=== PATIENT | male | born 1950 | race Caucasian/White ===

== ENCOUNTER 2024-02-05 10:51 | Emergency (ER) | payer OTHER ==
--- NOTE | 2024-02-05 11:07 | ERPHSYRPT ---
- History of Present Illness Time Seen by Provider: 02/05/24 11:05 Source: patient, EMS Exam Limitations: no limitations Physician History: The patient, with an unspecified medical history, presented after an episode of syncope at a local store. This was the first such episode, characterized by sudden onset dizziness followed by loss of consciousness. There was no prior history of dizziness or pre-syncopal symptoms. The patient denied any rotational vertigo. The syncopal episode resulted in a fall, during which the patient hit the back of their head. There was minor bleeding and a hematoma formed at the site of injury. No other injuries were reported from the fall. Post-incident, the patient reported feeling 'okay' with no ongoing dizziness. There were no visual disturbances or other neurological symptoms. The patient denied any chest pain or history of atrial fibrillation. There was no history of myocardial infarction or stenting. Regarding their general health, the patient mentioned a recommendation from their primary care physician to increase water and potassium intake, suggesting possible issues with hydration or electrolyte balance. However, there was no history of kidney disease or dialysis. The patient denied any current headache. Timing/Duration: today Severity: moderate Character of Deficits: none Deficits: no difficulties Baseline/Normal Cognition: alert oriented x 3 Current Cognition: alert oriented x 3 Associated Symptoms: other (syncope), No confusion, No nausea, No vomiting, No weakness, No slurred speech, No vision changes, No chest pain Allergies/Adverse Reactions: No Known Drug Allergies Allergy (Verified 02/05/24 10:53) Home Medications: Aspirin EC 81 mg [Ecotrin 81 mg] 81 mg PO HS 02/05/24 [History] Clonidine HCl 0.1 mg [Clonidine 0.1 mg Tablet] 0.1 mg PO CLARIFY 02/05/24 [History] Metformin HCl 500 mg [Glucophage 500 MG] 500 mg PO CLARIFY 02/05/24 [History] Metoprolol Tartrate 25 mg [Lopressor 25MG Tab] 25 mg PO CLARIFY 02/05/24 [History] - Review of Systems All Other Systems: Reviewed and Negative - Nursing Vital Signs Nursing Vital Signs: Initial Vital Signs Temperature 98 F 02/05/24 10:56 Pulse Rate 75 02/05/24 10:56 Respiratory Rate 24 02/05/24 10:56 Blood Pressure 103/67 02/05/24 10:56 O2 Sat by Pulse Oximetry 97 02/05/24 10:56 Pain Scale Pain Intensity 0 - [place] Coma Scale Best Eye Response ([place]): (4) open spontaneously Best Verbal Response ([place]): (5) oriented Best Motor Response ([place]): (6) obeys commands [place] Total: 15 - Physical Exam General Appearance: no apparent distress Eye Exam: bilateral eye: normal inspection, PERRL, EOMI Ears, Nose, Throat Exam: normal ENT inspection, pharynx normal, moist mucous membranes Neck Exam: normal inspection, non-tender, supple, full range of motion Respiratory: normal breath sounds, lungs clear, airway intact, No respiratory distress Cardiovascular: regular rate/rhythm, capillary refill <2 sec, No edema Gastrointestinal: soft, No tenderness, No distention Extremity Exam: normal inspection Mental Status: alert, 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 x 3, 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 Exam: normal hearing, normal speech, PERRL, tongue midline Coordination/Gait: normal finger to nose, normal cerebellar function Motor/Sensory: no motor deficit, no sensory deficit, no pronator drift Skin Exam: normal color, warm, dry, abrasion (occipital region, no active bleeding.) SpO2 Interpretation: normal O2 Delivery: Room Air - Course Nursing assessment & vital signs reviewed: Yes EKG Interpreted by Me: RATE (75), Sinus Rhythm, NORMAL AXIS, Right Bundle Branch Block, Other (NC [id number]) - CT Exams Head CT Interpretation: Negative, Tele-radiologist Report Ordered Tests: Active Orders 24 hr Category Date Time Status HEAD WITHOUT CONTRAST [CT] Stat Exams 02/05/24 11:22 Completed CBC W DIFF Stat Lab 02/05/24 11:15 Completed CMP Stat Lab 02/05/24 11:15 Completed CULTURE,URINE Stat Lab 02/05/24 13:54 Received ETHYL ALCOHOL Stat Lab 02/05/24 11:15 Completed LIPID PROFILE Stat Lab 02/05/24 11:15 Completed MAGNESIUM Stat Lab 02/05/24 11:15 Completed TROPONIN Q4H Lab 02/05/24 11:15 Completed TROPONIN Q4H Lab 02/05/24 15:30 Ordered TROPONIN Q4H Lab 02/05/24 19:30 Ordered TSH, 3RD Generation Stat Lab 02/05/24 11:15 Completed UA W/RFX UR CULTURE Stat Lab 02/05/24 13:54 Completed Urine Triage Profile Stat Lab 02/05/24 13:54 Results Bardy 3-7 Day Holter ONCE RT 02/05/24 13:40 Completed Medication Summary Generic Name Dose Route Start Last Admin Trade Name Bethany PRN Reason Stop Dose Admin Ceftriaxone Sodium 2 gm in 100 mls @ 200 mls/hr 02/05/24 14:30 02/05/24 14:39 Rocephin 2 Gm/100 Ml Nacl IV 02/05/24 14:59 200 mls/hr STAT ONE 200 mls/hr Administration Discontinued Medications Generic Name Dose Route Start Last Admin Trade Name Bethany PRN Reason Stop Dose Admin Sodium Chloride 1,000 mls @ 999 mls/hr 02/05/24 12:06 02/05/24 13:17 Sodium Chloride 0.9% 1000 Ml IV 02/05/24 13:06 Infused .Q1H1M STA Infusion Sodium Chloride Confirm 02/05/24 12:11 Sodium Chloride 0.9% 1000 Ml Administered 02/05/24 12:12 Dose 1,000 mls @ ud .ROUTE .STK-MED ONE Ceftriaxone Sodium Confirm 02/05/24 14:34 Rocephin 1 Gm / 100 Ml Nacl Administered 02/05/24 14:35 Dose 1 gm in 100 mls @ ud IV .STK-MED ONE Ceftriaxone Sodium Confirm 02/05/24 14:37 Rocephin 2 Gm/100 Ml Nacl Administered 02/05/24 14:38 Dose 2 gm in 100 mls @ ud IV .STK-MED ONE Lab/Rad Data: Laboratory Result Diagrams 02/05/24 11:15 02/05/24 11:15 Laboratory Results 02/05/24 02/05/24 02/05/24 Range/Units 13:54 13:54 11:15 WBC (4.23-9.07) x10^3/uL RBC (4.63-6.08) x10^6/uL Hgb (13.7-17.5) g/dL Hct (40.1-51.0) % MCV (79.0-92.2) fL MCH (25.7-32.2) pg MCHC (32.3-36.5) g/dL RDW (11.6-14.4) % Plt Count (163-337) x10^3/uL MPV (9.4-12.4) fL Gran % (34.0-67.9) % Immature Gran % (Auto) (0.001-0.429) % Nucleat RBC Rel Count (0.00-0.2) % Eos # (Auto) (0.04-0.54) x10^3/uL Immature Gran # (Auto) (0.001-0.031) x10^3u/L Absolute Lymphs (auto) (1.32-3.57) x10^3/uL Absolute Monos (auto) (0.30-0.82) x10^3/uL Absolute Nucleated RBC (0.00-0.012) x10^3u/L Lymphocytes % (21.8-53.1) % Monocytes % (5.3-12.2) % Eosinophils % (0.8-7.0) % Basophils % (0.2-1.2) % Absolute Granulocytes (1.78-5.38) x10^3/uL Basophils # (0.01-0.08) x10^3/uL Sodium (135-145) mmol/L Potassium (3.5-5.1) mmol/L Chloride (98-107) mmol/L Carbon Dioxide (22-30) mmol/L Anion Gap (5-15) MEQ/L BUN (9-20) mg/dL Creatinine (0.66-1.25) mg/dL Estimated GFR ML/MIN Glucose (74-106) mg/dL Hemoglobin A1c 6.03 H (4.5-6.0) % Calcium (8.4-10.2) mg/dL Magnesium (1.6-2.3) mg/dL Total Bilirubin (0.2-1.3) mg/dL AST (17-59) U/L ALT (0-50) U/L Alkaline Phosphatase (38-126) U/L Troponin I (0.000-0.033) ng/mL Serum Total Protein (6.3-8.2) g/dL Albumin (3.5-5.0) g/dL Triglycerides (30-150) mg/dL Cholesterol (50-200) mg/dL LDL Cholesterol (30-100) mg/dL HDL Cholesterol (40-60) mg/dL Heart Disease Risk Ratio TSH 3rd Generation (0.470-4.680) mIU/L Urine Color Yellow (Yellow) Urine Appearance Cloudy A (Clear) Urine pH 6.5 (4.6-8.0) Ur Specific [place] <=1.005 (1.005-1.030) Urine Protein Trace A (Negative) Urine Glucose (UA) Negative (Negative) mg/dL Urine Ketones Negative (Negative) Urine Blood Large A (Negative) Urine Nitrite Positive A (Negative) Urine Bilirubin Negative (Negative) Urine Urobilinogen 0.2 (0.2) mg/dL Ur Leukocyte Esterase Large A (Negative) U Hyaline Cast (Auto) 3-5 A (0-2) /LPF Urine Microscopic RBC 3-5 (0-5) /HPF Urine Microscopic WBC >100 A (0-5) /HPF Ur Epithelial Cells None Seen (None Seen) /HPF Urine Bacteria Many A (None Seen) /HPF Urine Culture Reflexed YES (NO) Urine Opiates Level NEGATIVE (NEGATIVE) Ur Methadone NEGATIVE (NEGATIVE) Urine Barbiturates NEGATIVE (NEGATIVE) Ur Phencyclidine (PCP) NEGATIVE (NEGATIVE) Urine Amphetamine NEGATIVE (NEGATIVE) U Benzodiazepine Level Pending Urine Cocaine NEGATIVE (NEGATIVE) Urine Marijuana (THC) NEGATIVE (NEGATIVE) Ethyl Alcohol (0-10) mg/dL 02/05/24 02/05/24 02/05/24 Range/Units 11:15 11:15 11:15 WBC (4.23-9.07) x10^3/uL RBC (4.63-6.08) x10^6/uL Hgb (13.7-17.5) g/dL Hct (40.1-51.0) % MCV (79.0-92.2) fL MCH (25.7-32.2) pg MCHC (32.3-36.5) g/dL RDW (11.6-14.4) % Plt Count (163-337) x10^3/uL MPV (9.4-12.4) fL Gran % (34.0-67.9) % Immature Gran % (Auto) (0.001-0.429) % Nucleat RBC Rel Count (0.00-0.2) % Eos # (Auto) (0.04-0.54) x10^3/uL Immature Gran # (Auto) (0.001-0.031) x10^3u/L Absolute Lymphs (auto) (1.32-3.57) x10^3/uL Absolute Monos (auto) (0.30-0.82) x10^3/uL Absolute Nucleated RBC (0.00-0.012) x10^3u/L Lymphocytes % (21.8-53.1) % Monocytes % (5.3-12.2) % Eosinophils % (0.8-7.0) % Basophils % (0.2-1.2) % Absolute Granulocytes (1.78-5.38) x10^3/uL Basophils # (0.01-0.08) x10^3/uL Sodium 130 L (135-145) mmol/L Potassium 4.2 (3.5-5.1) mmol/L Chloride 93 L (98-107) mmol/L Carbon Dioxide 26 (22-30) mmol/L Anion Gap 14.9 (5-15) MEQ/L BUN 56 H (9-20) mg/dL Creatinine 1.89 H (0.66-1.25) mg/dL Estimated GFR 36.8 ML/MIN Glucose 115 H (74-106) mg/dL Hemoglobin A1c (4.5-6.0) % Calcium 9.7 (8.4-10.2) mg/dL Magnesium 1.9 (1.6-2.3) mg/dL Total Bilirubin 0.80 (0.2-1.3) mg/dL AST 34 (17-59) U/L ALT 18 (0-50) U/L Alkaline Phosphatase 82 (38-126) U/L Troponin I < 0.012 (0.000-0.033) ng/mL Serum Total Protein 8.1 (6.3-8.2) g/dL Albumin 4.6 (3.5-5.0) g/dL Triglycerides 132 (30-150) mg/dL Cholesterol 82 (50-200) mg/dL LDL Cholesterol < 46 (30-100) mg/dL HDL Cholesterol 29 L (40-60) mg/dL Heart Disease Risk Ratio 3.0 TSH 3rd Generation 2.431 (0.470-4.680) mIU/L Urine Color (Yellow) Urine Appearance (Clear) Urine pH (4.6-8.0) Ur Specific [place] (1.005-1.030) Urine Protein (Negative) Urine Glucose (UA) (Negative) mg/dL Urine Ketones (Negative) Urine Blood (Negative) Urine Nitrite (Negative) Urine Bilirubin (Negative) Urine Urobilinogen (0.2) mg/dL Ur Leukocyte Esterase (Negative) U Hyaline Cast (Auto) (0-2) /LPF Urine Microscopic RBC (0-5) /HPF Urine Microscopic WBC (0-5) /HPF Ur Epithelial Cells (None Seen) /HPF Urine Bacteria (None Seen) /HPF Urine Culture Reflexed (NO) Urine Opiates Level (NEGATIVE) Ur Methadone (NEGATIVE) Urine Barbiturates (NEGATIVE) Ur Phencyclidine (PCP) (NEGATIVE) Urine Amphetamine (NEGATIVE) U Benzodiazepine Level Urine Cocaine (NEGATIVE) Urine Marijuana (THC) (NEGATIVE) Ethyl Alcohol < 10 (0-10) mg/dL 02/05/24 Range/Units 11:15 WBC 10.8 H (4.23-9.07) x10^3/uL RBC 4.93 (4.63-6.08) x10^6/uL Hgb 15.0 (13.7-17.5) g/dL Hct 44.2 (40.1-51.0) % MCV 89.7 (79.0-92.2) fL MCH 30.4 (25.7-32.2) pg MCHC 33.9 (32.3-36.5) g/dL RDW 11.7 (11.6-14.4) % Plt Count 251 (163-337) x10^3/uL MPV 9.0 L (9.4-12.4) fL Gran % 72.1 H (34.0-67.9) % Immature Gran % (Auto) 0.6 H (0.001-0.429) % Nucleat RBC Rel Count 0.0 (0.00-0.2) % Eos # (Auto) 0.16 (0.04-0.54) x10^3/uL Immature Gran # (Auto) 0.06 H (0.001-0.031) x10^3u/L Absolute Lymphs (auto) 2.03 (1.32-3.57) x10^3/uL Absolute Monos (auto) 0.65 (0.30-0.82) x10^3/uL Absolute Nucleated RBC 0.00 (0.00-0.012) x10^3u/L Lymphocytes % 18.8 L (21.8-53.1) % Monocytes % 6.0 (5.3-12.2) % Eosinophils % 1.5 (0.8-7.0) % Basophils % 1.0 (0.2-1.2) % Absolute Granulocytes 7.77 H (1.78-5.38) x10^3/uL Basophils # 0.11 H (0.01-0.08) x10^3/uL Sodium (135-145) mmol/L Potassium (3.5-5.1) mmol/L Chloride (98-107) mmol/L Carbon Dioxide (22-30) mmol/L Anion Gap (5-15) MEQ/L BUN (9-20) mg/dL Creatinine (0.66-1.25) mg/dL Estimated GFR ML/MIN Glucose (74-106) mg/dL Hemoglobin A1c (4.5-6.0) % Calcium (8.4-10.2) mg/dL Magnesium (1.6-2.3) mg/dL Total Bilirubin (0.2-1.3) mg/dL AST (17-59) U/L ALT (0-50) U/L Alkaline Phosphatase (38-126) U/L Troponin I (0.000-0.033) ng/mL Serum Total Protein (6.3-8.2) g/dL Albumin (3.5-5.0) g/dL Triglycerides (30-150) mg/dL Cholesterol (50-200) mg/dL LDL Cholesterol (30-100) mg/dL HDL Cholesterol (40-60) mg/dL Heart Disease Risk Ratio TSH 3rd Generation (0.470-4.680) mIU/L Urine Color (Yellow) Urine Appearance (Clear) Urine pH (4.6-8.0) Ur Specific [place] (1.005-1.030) Urine Protein (Negative) Urine Glucose (UA) (Negative) mg/dL Urine Ketones (Negative) Urine Blood (Negative) Urine Nitrite (Negative) Urine Bilirubin (Negative) Urine Urobilinogen (0.2) mg/dL Ur Leukocyte Esterase (Negative) U Hyaline Cast (Auto) (0-2) /LPF Urine Microscopic RBC (0-5) /HPF Urine Microscopic WBC (0-5) /HPF Ur Epithelial Cells (None Seen) /HPF Urine Bacteria (None Seen) /HPF Urine Culture Reflexed (NO) Urine Opiates Level (NEGATIVE) Ur Methadone (NEGATIVE) Urine Barbiturates (NEGATIVE) Ur Phencyclidine (PCP) (NEGATIVE) Urine Amphetamine (NEGATIVE) U Benzodiazepine Level Urine Cocaine (NEGATIVE) Urine Marijuana (THC) (NEGATIVE) Ethyl Alcohol (0-10) mg/dL - Progress Progress: improved Progress Note: CT head neg for acute bleed. Unable to perform contrast study due to Cr of 1.8 and GFR and 34. I do believe his syncopal episode was cardiac nature. Will dc home with holter monitor for 7 days. Recommend f/u outpatient for further eval with echo, carotid US and tilt table. Counseled pt/family regarding: lab results, diagnosis, need for follow-up, rad results Medical Desision Making - Diagnostic Testing Diagnostic test were ordered, analyzed, and reviewed by me: Yes Radiological Interpretation: Interpreted by me, Reviewed by me, Teleradiologist Report - Departure Departure Disposition: Home Clinical Impression: TARYN (acute kidney injury), Syncope and collapse, Abrasion of head, Dehydration, UTI (urinary tract infection) Condition: Good Critical Care Time: No Referrals: DOCTOR,NO FAMILY [Primary Care Provider] - Follow up/PCP as directed Instructions: Dizziness, Nonvertigo, (DC), Urinary Tract Infection, Adult ED Prescriptions: Cephalexin Mh 500 mg [Keflex 500 mg] 500 mg PO TID 5 Days #15 cap
[2024-02-05 11:14] VITALS: TEMP 98
[2024-02-05 11:28] LABS: Absolute Neutrophil Ct (ANC) 7.77 x10^3/uL (1.78-5.38); Basophil (Absolute #) 0.11 x10^3/uL (0.01-0.08); Eosinophil % 1.5 % (0.8-7.0); Eosinophil (Absolute #) 0.16 x10^3/uL (0.04-0.54); Hematocrit 44.2 % (40.1-51.0); IMMATURE GRAN # 0.06 x10^3u/L (0.001-0.031); IMMATURE GRAN % 0.6 % (0.001-0.429); Lymphocyte (Absolute #) 2.03 x10^3/uL (1.32-3.57); Lymphocytes % 18.8 % (21.8-53.1); Mean Cell Volume 89.7 fL (79.0-92.2); Mean Corpuscular Hemoglobin 30.4 pg (25.7-32.2); Mean Corpuscular Hgb Concent. 33.9 g/dL (32.3-36.5); Monocyte (Absolute #) 0.65 x10^3/uL (0.30-0.82); Neutrophil % 72.1 % (34.0-67.9); Platelet Count 251 x10^3/uL (163-337); Red Blood Count 4.93 x10^6/uL (4.63-6.08); Red Cell Distribution Width 11.7 % (11.6-14.4); White Blood Count 10.8 x10^3/uL (4.23-9.07)
[2024-02-05 11:39] LABS: ALBUMIN 4.6 g/dL (3.5-5.0); ALKALINE PHOSPHATASE 82 U/L (38-126); ANION GAP 14.9 MEQ/L (5-15); BLOOD UREA NITROGEN 56 mg/dL (9-20); CHLORIDE 93 mmol/L (98-107); Calcium 9.7 mg/dL (8.4-10.2); Carbon Dioxide 26 mmol/L (22-30); Creatinine 1 1.89 mg/dL (0.66-1.25); EST GLOMERULAR FILTRATION RATE 36.8 ML/MIN; ETHYL ALCOHOL < 10 mg/dL (0-10); Glucose 115 mg/dL (74-106); MAGNESIUM 1.9 mg/dL (1.6-2.3); Potassium 4.2 mmol/L (3.5-5.1); SGOT/AST 34 U/L (17-59); SGPT/ALT 18 U/L (0-50); SODIUM 130 mmol/L (135-145); Total Protein 8.1 g/dL (6.3-8.2)
[2024-02-05 12:05] VITALS: RESP 20
--- NOTE | 2024-02-05 12:09 | XRAY ---
CLINICAL HISTORY: fall, dizziness COMPARISON: None. TECHNIQUE: Axial non contrast CT scan of the brain was performed from the skull base to the high parietal region. One of the following dose reduction techniques was utilized for this exam.Automated exposure control, adjustment of the mA and/or kV according to patient size, and use of iterative reconstruction. FINDINGS: No intracerebral or extra axial hematoma. No established territorial ischemic infarction was seen. Age-appropriate brain involutional changes are seen as evident by prominent intra- and extra axial CSF spaces. Multiple scattered hypodensities are seen in the bilateral periventricular region representing chronic microvascular ischemic changes. No obvious space-occupying lesions seen. The visualized brain parenchyma shows normal appearance. No focal parenchymal abnormalities are demonstrated. Mariee-white matter differentiation is maintained. No midline shifts or deformity. Normal size and configuration of the cerebral ventricles. Normal CT appearance of the posterior fossa structures namely the cerebellar hemispheres, brainstem and cerebellar peduncles. The IACs are unremarkable. The cerebello-pontine angles are clear. The pituitary gland, the pineal gland, the optic chiasm is unremarkable. The osseous structures in the skull base are unremarkable. No definite calvarium fractures. Mucosal thickening is seen in right maxillary sinus. Mild mucosal thickening also seen in left maxillary sinus. IMPRESSION: 1. No intracerebral or extra axial hematoma. 2. No established territorial ischemic infarction was seen. Early changes of acute ischemic infarction may not be detected on CT scan, MRI DWI/ADC is the imaging modality of choice. 3. Age-appropriate brain involutional changes and chronic microvascular ischemic changes. Electronically Signed by: Viviana Sheth MD. (02/05/2024 12:06:00 EDT)
[2024-02-05] MEDS: Sodium Chloride 0.9% 1000 ML 1,000 ML IV STA (12:11)
[2024-02-05] MEDS ORDERED: Sodium Chloride 0.9% 1000 ML 1,000 ML ONE (12:11)
[2024-02-05 12:13] LABS: Cholesterol 82 mg/dL (50-200); HDL CHOLESTEROL 29 mg/dL (40-60); LDL, DIRECT < 46 mg/dL (30-100); TRIGLYCERIDE 132 mg/dL (30-150); TSH, 3RD Generation 2.431 mIU/L (0.470-4.680)
[2024-02-05 14:12] VITALS: BP 85/68; PULSE 70; O2SAT 96
[2024-02-05 14:23] LABS: Appearance Cloudy (Clear); Bacteria Many /HPF (None Seen); Bilirubin Negative (Negative); Blood Large (Negative); Epithelial Cells None Seen /HPF (None Seen); Glucose, Urine Negative (Negative); Ketones Negative (Negative); Leukocyte Esterase Large (Negative); Nitrite Positive (Negative); Ph 6.5 (4.6-8.0); Protein,Urine Dip Trace (Negative); Specific Gravity <=1.005 (1.005-1.030); Urobilinogen 0.2 mg/dL (0.2); WBC >100 /HPF (0-5)
[2024-02-05 14:24] LABS: ADD URINE CULTURE? YES (NO)
[2024-02-05 14:31] LABS: Amphetamine,Urine NEGATIVE (NEGATIVE); Barbiturate,Urine NEGATIVE (NEGATIVE); Cocaine,Urine NEGATIVE (NEGATIVE); Methadone,Urine NEGATIVE (NEGATIVE); Opiate,Urine NEGATIVE (NEGATIVE); PCP,Urine NEGATIVE (NEGATIVE); THC,Urine NEGATIVE (NEGATIVE)
[2024-02-05] MEDS ORDERED: ROCEPHIN 1 GM / 100 ML NaCl 1 GM/100 ML IVPB IV ONE (14:34)
[2024-02-05] MEDS ORDERED: ROCEPHIN 2 GM/100 ML NACL 2 GM/100 ML IVPB IV ONE (14:37)
[2024-02-05] MEDS: ROCEPHIN 2 GM/100 ML NACL 2 GM/100 ML IVPB IV ONE (14:39)
[2024-02-07 20:13] LABS: Benzodiazepines Negative ng/mL (Cutoff=300)
== END 2024-02-05 15:24 | disposition home or self-care (01) ==
LOC: ED 10:51
DX: N17.9 Acute kidney failure, unspecified (principal); R55 Syncope and collapse; S00.01XA Abrasion of scalp, initial encounter; W18.39XA Other fall on same level, initial encounter; Y92.512 Supermarket, store or market as the place of occurrence of the external cause; E86.0 Dehydration; N39.0 Urinary tract infection, site not specified; Z79.84 Long term (current) use of oral hypoglycemic drugs; Z79.899 Other long term (current) drug therapy
CPT/HCPCS: 36415; 70450; 80053; 80061; 80307; 81001; 82077; 83036; 83721; 83735; 84443; 84484; 85025; 87086; 93005; 93225; 96365; 99284; J0696

== ENCOUNTER 2024-03-18 10:22 | Inpatient (IN) | payer OTHER ==
--- NOTE | 2024-03-18 10:48 | ERPHSYRPT ---
- History of Present Illness Time Seen by Provider: 03/18/24 10:48 Source: patient Exam Limitations: no limitations Patient Subjective Stated Complaint: pt states that he has had painful urination since Tuesday Triage Nursing Assessment: Pt brought self to the ER, hypotensive, denies pain unless he is urinating, pulses normal, skin pale and warm, had a UTI last month but doesn't think that he had fully gotten rid of it, doesn't appear to be in a ny distress Physician History: The patient presents with a urinary infection, experiencing a burning sensation during urination. They have been on antibiotics, including Keflex and Macrobid, [facility]. Despite the appearance of the urine, a culture from January did not grow any specific bacteria. The patient denies any fever, confusion, or pain other than the burning sensation during urination. Timing/Duration: week(s) (1) Activites at Onset: rest Quality: burning Onset Location: urethral Pain Radiation: none Severity of Pain-Max: moderate Severity of Pain-Current: moderate Modifying Factors: Improves With: nothing. Worsens With: urinating Associated Symptoms: dysuria, No abdominal pain, No fever, No chills, No diaphoresis, No nausea, No vomiting, No polyuria, No urinary frequency, No loss of bladder control Prior abdominal problems: none Sexual intercourse history: not active Allergies/Adverse Reactions: No Known Drug Allergies Allergy (Verified 03/18/24 10:48) Home Medications: Aspirin EC 81 mg [Ecotrin 81 mg] 81 mg PO HS 02/05/24 [History] Clonidine HCl 0.1 mg [Clonidine 0.1 mg Tablet] 0.1 mg PO CLARIFY 02/05/24 [History] Metformin HCl 500 mg [Glucophage 500 MG] 500 mg PO BID 02/05/24 [History] Metoprolol Tartrate 25 mg [Lopressor 25MG Tab] 25 mg PO CLARIFY 02/05/24 [History] Hx Tetanus, Diphtheria Vaccination/Date Given: Yes Hx Influenza Vaccination/Date Given: No Hx Pneumococcal Vaccination/Date Given: No Travel Risk - International Travel Have you traveled outside of the country in past 3 weeks: No - Emerging Infectious Disease Are you exhibiting symptoms associated with any current EIDs: No - Past Medical History Pertinent Past Medical History: Yes Cardiac History: Hypertension Endocrine Medical History: Diabetes Type II - Past Surgical History Past Surgical History: Yes Other Surgical History: something removed from left ear - Social History Smoking Status: Former smoker How long have you smoked: 60 years Exposure to second hand smoke: No Drug Use: none - Social Determinants of Health Will the patient participate in the screening: Declined to provide - Review of Systems All Other Systems: Reviewed and Negative - Nursing Vital Signs Nursing Vital Signs: Initial Vital Signs Temperature 98.9 F 03/18/24 10:40 Pulse Rate 85 03/18/24 10:40 Blood Pressure 85/49 03/18/24 10:40 O2 Sat by Pulse Oximetry 97 03/18/24 10:40 Pain Scale Pain Intensity 0 - Physical Exam General Appearance: no apparent distress Neck Exam: normal inspection, supple, full range of motion Respiratory Exam: airway intact, No respiratory distress Cardiovascular Exam: regular rate/rhythm, normal heart sounds, capillary refill <2 sec, No edema Gastrointestinal/Abdomen Exam: soft, No tenderness, No distention, No mass, No guarding, No rebound Neurologic Exam: alert, oriented x 3, cooperative Skin Exam: normal color, warm, dry SpO2 Interpretation: normal SpO2: 97 O2 Delivery: Room Air - Course Nursing assessment & vital signs reviewed: Yes Ordered Tests: Active Orders 24 hr Category Date Time Status 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 Care 03/18/24 11:08 Active Gutierrez [Catheter-[place] Gutierrez] STAT Care 03/18/24 12:43 Active IV Insertion STAT Care 03/18/24 11:08 Active Pulse Oximetry (ED) STAT Care 03/18/24 11:08 Active ABDOMEN AND PELVIS W/0 CONTRAS [CT] Stat Exams 03/18/24 11:50 Completed BLOOD CULTURE Stat Lab 03/18/24 11:34 Received CBC W DIFF Stat Lab 03/18/24 11:08 Completed CMP Stat Lab 03/18/24 11:08 Completed CULTURE,URINE Stat Lab 03/18/24 11:12 Received Lactic Acid Stat Lab 03/18/24 11:20 Completed PROCALCITONIN Stat Lab 03/18/24 11:21 Completed UA W/RFX UR CULTURE Stat Lab 03/18/24 11:12 Completed VENOUS BLOOD GAS Stat Lab 03/18/24 11:20 Completed Transfer Order Routine Transfer 03/18/24 Ordered Medication Summary Generic Name Dose Route Start Last Admin Trade Name Freq PRN Reason Stop Dose Admin Sodium Chloride 1,000 mls @ 999 mls/hr 03/18/24 11:15 03/18/24 13:31 Sodium Chloride 0.9% 1000 Ml IV 03/18/24 14:15 999 mls/hr .Q1H1M CARLEY Administration Discontinued Medications Generic Name Dose Route Start Last Admin Trade Name Bethany PRN Reason Stop Dose Admin Levofloxacin/Dextrose 750 mg in 150 mls @ 100 mls/hr 03/18/24 11:09 03/18/24 13:21 Levofloxacin 750mg/150ml D5w IV 03/18/24 12:38 Infused STAT STA Infusion Levofloxacin/Dextrose Confirm 03/18/24 11:40 Levofloxacin 750mg/150ml D5w Administered 03/18/24 11:41 Dose 750 mg in 150 mls @ ud IV .[facility] Lab/Rad Data: Laboratory Result Diagrams 03/18/24 11:08 03/18/24 11:08 Laboratory Results 03/18/24 03/18/24 03/18/24 Range/Units 11:21 11:20 11:20 WBC (4.23-9.07) x10^3/uL RBC (4.63-6.08) x10^6/uL Hgb (13.7-17.5) g/dL Hct (40.1-51.0) % MCV (79.0-92.2) fL MCH (25.7-32.2) pg MCHC (32.3-36.5) g/dL RDW (11.6-14.4) % Plt Count (163-337) x10^3/uL MPV (9.4-12.4) fL Gran % (34.0-67.9) % Immature Gran % (Auto) (0.001-0.429) % Nucleat RBC Rel Count (0.00-0.2) % Eos # (Auto) (0.04-0.54) x10^3/uL Immature Gran # (Auto) (0.001-0.031) x10^3u/L Absolute Lymphs (auto) (1.32-3.57) x10^3/uL Absolute Monos (auto) (0.30-0.82) x10^3/uL Absolute Nucleated RBC (0.00-0.012) x10^3u/L Lymphocytes % (21.8-53.1) % Monocytes % (5.3-12.2) % Eosinophils % (0.8-7.0) % Basophils % (0.2-1.2) % Absolute Granulocytes (1.78-5.38) x10^3/uL Basophils # (0.01-0.08) x10^3/uL pO2/FiO2 Ratio 21.0 % VBG pH 7.43 H (7.32-7.42) VBG pCO2 at Pat Temp 32 L (42-55) mm/Hg VBG pO2 at Pat Temp 42 H (25-40) mm/Hg VBG HCO3 21.2 L (22-28) meq/L VBG O2 Sat (Vivek) 80.5 L (95-100) VBG Base Excess -2.4 L (-2.0-2.0) VBG Hemoglobin 12.2 VBG Carboxyhemoglobin 3.6 (0.0-6.9) % T HGB POC Potassium 4.3 (3.5-5.1) Sodium (135-145) mmol/L Potassium (3.5-5.1) mmol/L Chloride (98-107) mmol/L Carbon Dioxide (22-30) mmol/L Anion Gap (5-15) MEQ/L BUN (9-20) mg/dL Creatinine (0.66-1.25) mg/dL Estimated GFR ML/MIN Glucose (74-106) mg/dL Lactic Acid 1.5 (0.4-2.0) Calcium (8.4-10.2) mg/dL Total Bilirubin (0.2-1.3) mg/dL AST (17-59) U/L ALT (0-50) U/L Alkaline Phosphatase (38-126) U/L Serum Total Protein (6.3-8.2) g/dL Albumin (3.5-5.0) g/dL Procalcitonin 0.368 H (0.030-0.080) ng/mL Urine Color (Yellow) Urine Appearance (Clear) Urine pH (4.6-8.0) Ur Specific [place] (1.005-1.030) Urine Protein (Negative) Urine Glucose (UA) (Negative) mg/dL Urine Ketones (Negative) Urine Blood (Negative) Urine Nitrite (Negative) Urine Bilirubin (Negative) Urine Urobilinogen (0.2) mg/dL Ur Leukocyte Esterase (Negative) U Hyaline Cast (Auto) (0-2) /LPF Urine Microscopic RBC (0-5) /HPF Urine Microscopic WBC (0-5) /HPF Ur Epithelial Cells (None Seen) /HPF Urine Bacteria (None Seen) /HPF Urine Culture Reflexed (NO) Slides for Path Review 03/18/24 03/18/24 03/18/24 Range/Units 11:12 11:08 11:08 WBC 18.3 H (4.23-9.07) x10^3/uL RBC 3.94 L (4.63-6.08) x10^6/uL Hgb 11.7 L (13.7-17.5) g/dL Hct 34.0 L (40.1-51.0) % MCV 86.3 (79.0-92.2) fL MCH 29.7 (25.7-32.2) pg MCHC 34.4 (32.3-36.5) g/dL RDW 12.5 (11.6-14.4) % Plt Count 280 (163-337) x10^3/uL MPV 9.1 L (9.4-12.4) fL Gran % 80.7 H (34.0-67.9) % Immature Gran % (Auto) 0.7 H (0.001-0.429) % Nucleat RBC Rel Count 0.0 (0.00-0.2) % Eos # (Auto) 0.06 (0.04-0.54) x10^3/uL Immature Gran # (Auto) 0.13 H (0.001-0.031) x10^3u/L Absolute Lymphs (auto) 1.55 (1.32-3.57) x10^3/uL Absolute Monos (auto) 1.73 H (0.30-0.82) x10^3/uL Absolute Nucleated RBC 0.00 (0.00-0.012) x10^3u/L Lymphocytes % 8.5 L (21.8-53.1) % Monocytes % 9.4 (5.3-12.2) % Eosinophils % 0.3 L (0.8-7.0) % Basophils % 0.4 (0.2-1.2) % Absolute Granulocytes 14.76 H (1.78-5.38) x10^3/uL Basophils # 0.08 (0.01-0.08) x10^3/uL pO2/FiO2 Ratio % VBG pH (7.32-7.42) VBG pCO2 at Pat Temp (42-55) mm/Hg VBG pO2 at Pat Temp (25-40) mm/Hg VBG HCO3 (22-28) meq/L VBG O2 Sat (Vivek) (95-100) VBG Base Excess (-2.0-2.0) VBG Hemoglobin VBG Carboxyhemoglobin (0.0-6.9) % T HGB POC Potassium (3.5-5.1) Sodium 123 L (135-145) mmol/L Potassium 4.3 (3.5-5.1) mmol/L Chloride 92 L (98-107) mmol/L Carbon Dioxide 21 L (22-30) mmol/L Anion Gap 15.0 (5-15) MEQ/L BUN 62 H (9-20) mg/dL Creatinine 3.06 H (0.66-1.25) mg/dL Estimated GFR 20.6 ML/MIN Glucose 122 H (74-106) mg/dL Lactic Acid (0.4-2.0) Calcium 9.0 (8.4-10.2) mg/dL Total Bilirubin 1.20 (0.2-1.3) mg/dL AST 30 (17-59) U/L ALT 26 (0-50) U/L Alkaline Phosphatase 67 (38-126) U/L Serum Total Protein 7.3 (6.3-8.2) g/dL Albumin 4.0 (3.5-5.0) g/dL Procalcitonin (0.030-0.080) ng/mL Urine Color Yellow (Yellow) Urine Appearance Cloudy A (Clear) Urine pH 8.0 (4.6-8.0) Ur Specific [place] 1.010 (1.005-1.030) Urine Protein 100 A (Negative) Urine Glucose (UA) Negative (Negative) mg/dL Urine Ketones Negative (Negative) Urine Blood Moderate A (Negative) Urine Nitrite Negative (Negative) Urine Bilirubin Negative (Negative) Urine Urobilinogen 0.2 (0.2) mg/dL Ur Leukocyte Esterase Large A (Negative) U Hyaline Cast (Auto) 6-10 A (0-2) /LPF Urine Microscopic RBC 6-10 A (0-5) /HPF Urine Microscopic WBC >100 A (0-5) /HPF Ur Epithelial Cells None Seen (None Seen) /HPF Urine Bacteria Many A (None Seen) /HPF Urine Culture Reflexed YES (NO) Slides for Path Review YES - Progress Progress Note: 03/18/24 11:24 Urinary Tract Infection Reports dysuria. Has been on Keflex and Macrobid without improvement. Previous urine culture in January was negative despite abnormal appearance. No systemic symptoms. -Collect urine for culture and sensitivity. -Empiric tx with Levofloxacin. -Sepsis screen initiated Hypotension Reports lightheadedness, possibly related to antihypertensive medication. Blood pressure measured as low in the office. -Administer IV fluids. -Recheck blood pressure after fluid administration. -Review antihypertensive medication regimen. -If no improvement consider pressors. 03/18/24 13:52 BP improved with fluid resuscitation. MAP 73 currently. Sepsis secondary to UTI. Continue Levofloxacin. Patient agreeable to admission, Dr. Sousa accepts at 1350. Discussed with Dr.: Other (Merry) Will see patient in: hospital (observation) Counseled pt/family regarding: lab results, diagnosis, need for follow-up, rad results Medical Desision Making - Diagnostic Testing Diagnostic test were ordered, analyzed, and reviewed by me: Yes Radiological Interpretation: Interpreted by me, Reviewed by me, Teleradiologist Report - Risk of complications The pt has a mod risk of morbidity or mortality based on: Need for prescription drug management The pt has a high risk of morbidity or mortality based on: Decision regarding hospitilization or escalation of hosp level of care - Departure Departure Disposition: Observation Clinical Impression: TARYN (acute kidney injury), BPH (benign prostatic hyperplasia), UTI (urinary tract infection), Sepsis, Urinary retention due to benign prostatic hyperplasia Condition: Stable Critical Care Time: No Referrals: [facility]OSP[facility],'S [Primary Care Provider] - Follow up/PCP as directed Instructions: Urinary Tract Infection, Adult (DC)
[2024-03-18 11:24] LABS: Absolute Neutrophil Ct (ANC) 14.76 x10^3/uL (1.78-5.38); BASOPHIL % 0.4 % (0.2-1.2); Basophil (Absolute #) 0.08 x10^3/uL (0.01-0.08); Eosinophil % 0.3 % (0.8-7.0); Eosinophil (Absolute #) 0.06 x10^3/uL (0.04-0.54); Hemoglobin 11.7 g/dL (13.7-17.5); IMMATURE GRAN # 0.13 x10^3u/L (0.001-0.031); IMMATURE GRAN % 0.7 % (0.001-0.429); Lymphocyte (Absolute #) 1.55 x10^3/uL (1.32-3.57); Lymphocytes % 8.5 % (21.8-53.1); Mean Cell Volume 86.3 fL (79.0-92.2); Mean Corpuscular Hemoglobin 29.7 pg (25.7-32.2); Mean Corpuscular Hgb Concent. 34.4 g/dL (32.3-36.5); Mean Platelet Volume 9.1 fL (9.4-12.4); Monocyte (Absolute #) 1.73 x10^3/uL (0.30-0.82); Monocytes % 9.4 % (5.3-12.2); Neutrophil % 80.7 % (34.0-67.9); Platelet Count 280 x10^3/uL (163-337); Red Blood Count 3.94 x10^6/uL (4.63-6.08); Red Cell Distribution Width 12.5 % (11.6-14.4); White Blood Count 18.3 x10^3/uL (4.23-9.07)
[2024-03-18 11:25] LABS: VBG BASE EXCESS -2.4 (-2.0-2.0); VBG CARBOXYHEMOGLOBIN 3.6 % T HGB (0.0-6.9); VBG HCO3- 21.2 meq/L (22-28); VBG HEMOGLOBIN 12.2; VBG O2 SATURATION 80.5 (95-100); VBG POTASSIUM 4.3 (3.5-5.1); VBG pH 7.43 (7.32-7.42)
[2024-03-18 11:38] LABS: BILIRUBIN,TOTAL 1.2 mg/dL (0.2-1.3); Creatinine 1 3.06 mg/dL (0.66-1.25); EST GLOMERULAR FILTRATION RATE 20.6 ML/MIN; Potassium 4.3 mmol/L (3.5-5.1); Total Protein 7.3 g/dL (6.3-8.2)
[2024-03-18] MEDS ORDERED: LEVOFLOXACIN 750MG/150ML D5W 750 MG/150 ML BAG IV ONE (11:40)
[2024-03-18] MEDS ORDERED: Sodium Chloride 0.9% 1000 ML 1,000 ML ONE ×2 (11:40→13:22)
[2024-03-18] MEDS: LEVOFLOXACIN 750MG/150ML D5W 750 MG/150 ML BAG IV STA (11:42)
[2024-03-18] MEDS: Sodium Chloride 0.9% 1000 ML 1,000 ML IV SCH ×2 (11:43→16:15)
[2024-03-18 11:51] LABS: Appearance Cloudy (Clear); Bacteria Many /HPF (None Seen); Bilirubin Negative (Negative); Blood Moderate (Negative); Epithelial Cells None Seen /HPF (None Seen); Glucose, Urine Negative (Negative); Ketones Negative (Negative); Leukocyte Esterase Large (Negative); Nitrite Negative (Negative); Protein,Urine Dip 100 (Negative); Urobilinogen 0.2 mg/dL (0.2); WBC >100 /HPF (0-5)
[2024-03-18 11:53] LABS: ADD URINE CULTURE? YES (NO)
[2024-03-18 12:00] LABS: Slide Review 1 YES
--- NOTE | 2024-03-18 13:07 | XRAY ---
CLINICAL HISTORY: abd pain COMPARISON: None. TECHNIQUE: Non-contrast CT of the abdomen was performed, with the following protocol: axial images and reconstructed coronal and sagittal images, without intravenous contrast. One of the following dose reduction techniques was utilized for this exam.Automated exposure control, adjustment of the mA and/or kV according to patient size, and use of iterative reconstruction. DLP: 728mGy*cm, and CTDI 13.95mGy. FINDINGS: Liver: Normal in size, shape, and density. At least 3 small hypodense lesions seen in the right lobe of liver, largest measuring about 7X 12 mm suggesting benign lesions likely hemangiomas versus hepatic cysts. No intrahepatic biliary dilatation. Gallbladder and Biliary System: The gallbladder is contracted. No pericholecystic fluid was identified. Small hyperdense focus within the gall bladder suggesting gallstone, needs Ultrasound correlation. Common bile duct measures 6 mm without dilatation. Pancreas: Pancreatic head, body, and tail are visualized and appear normal in size and density. No pancreatic masses, cysts, or calcifications were noted. The main pancreatic duct is normal without dilatation. Spleen: Normal in size, shape, and density. No splenic lesions or masses were identified. Kidneys and Adrenal Glands: Bilateral hydro-ureter and hydronephrosis with bilateral perinephric fat stranding noted. Both ureters are showing tortuous course with no clear stone or thickening. Urinary bladder thickened wall with multiple diverticula noted the largest one seen in the posterior wall measuring 5x4 cm in diameter. Right side kidney midpole shows a 9x9 mm high-density focal lesion. DD proteinous cyst. No clear stones are identifiable. Mild thickening of left adrnal gland suggesting adrenal hyperplasia. Appendix: The appendix is normal in size without sean appendiceal fat stranding, and without an appendicolith. No evidence of appendiceal abscess or perforation. Bowel: Few colonic diverticuli mainly involving descending and ascending colon without evident diverticulitis. 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 Prostate is enlarged 5x4x4.5 cm. Peritoneal and Retroperitoneal Structures: Multiple vascular calcifications are noted including the aorta and its branches. No free fluid or abnormal fluid collections were identified within the abdomen or pelvis. No lymphadenopathy was noted. Additional findings: Bilateral small fat-containing inguinal hernia IMPRESSION: 1. At least 3 small hypodense lesions are seen in the right lobe of liver, largest measuring about 7X 12 mm suggesting benign lesions likely hemangiomas versus hepatic cysts. 2. The gallbladder is normal in size and shape. No wall thickening, pericholecystic fluid,were identified. Small density focus within the gall bladder DD Fold or stone needs Ultrasound correlation. 3. Bilateral mild to moderate hydroureteronephrosis with bilateral perinephric fat stranding noted. 4. Both ureters are showing tortuous course with no clear stone or thickening. 5. Urinary bladder showed thickened wall with multiple diverticula, the largest one seen in the posterior aspect measuring 5x4 cm in diameter. 6. Right side kidney midpole shows a 9x9 mm high-density focal lesion. DD proteinous cyst. 7. Multiple vascular calcifications noted including the aorta and its branches. 8. 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 9. Mild enlarged Prostate. 10. Full workup with urologist and CT/MRI abdomen with contrast advised Electronically Signed by: Viviana Sheth MD. (03/18/2024 13:04:16 EDT)
[2024-03-18] MEDS ORDERED: XYLOCAINE 2% Uro-Jet ONE (13:57)
[2024-03-18] MEDS: XYLOCAINE 2% Uro-Jet TOP ONE (14:03)
--- NOTE | 2024-03-18 14:15 | PCM.HP ---
<ALEX WINTER - Last Filed: 03/18/24 15:42> History of Present Illness - Chief Complaint Chief Complaint: Painful urination Date: 03/18/24 History of Present Illness: is a 73 year old male with a pmhx of BPH (on flomax), HLD, marcel-tachy syndrome (pacemaker placement scheduled in 2 weeks), DM and HTN who presented to ED 03/18/24 with complaints of painful urination for three days. Of note ED visit 02/05/24 for which he was treated for UTI with Keflex. Reviewed previous culture showing probable skin contaminant. Patient reports dysuria, frequency, and retention since about January with symptoms worsening over the past few days. Denies hematuria at home, no flank or back pain, nausea, vomiting, or diarrhea. Patient is febrile during interview with temp of 101.3. States he does not recall having fever or chills previously. Muse placed in ED due to urinary retention with noted pyuria, hematuria, and large blood clots in muse bag. Upon arrival to ED, patient was tachypneic and hypotensive with bp 85/49 but later dropping in the 70's/40's. BP improved with fluid resusitation. CT abdomen and pelvis showing 3 small hypodense lesions are seen in the right lobe of liver, Small density focus within the gall bladder DD Fold or stone needs Ultrasound correlation, Bilateral mild to moderate hydroureteronephrosis with bilateral perinephricfat stranding noted. Both ureters are showing tortuous course with no clear stone or thickening. Urinary bladder showed thickened wall with multiple diverticula, the largest one seen in the posterior aspect measuring 5x4 cm in diameter. Right side kidney midpole shows a 9x9 mm high-density focal lesion. DD proteinous cyst. Lab findings remarkable for leukocytosis at 18.3, normocytic anemia with hgb at 11.7, hyponatremia at 123, TARYN with creat at 3.06 (baseline unknown - previous visit showing 1.89). UA suspicious for infection. Patient given levaquin in ED and 2L fluid bolus. - Review of Systems Constitutional: Fever, Weakness Eyes: No Symptoms Ears, Nose, & Throat: No Symptoms Respiratory: No Symptoms Cardiac: No Symptoms Abdominal/Gastrointestinal: Constipation Genitourinary Symptoms: Dysuria, Frequency, Hematuria, Hesitancy, Urinary Retention Musculoskeletal: No Symptoms Skin: No Symptoms Neurological: No Symptoms Psychological: No Symptoms Endocrine: No Symptoms Hematologic/Lymphatic: No Symptoms Immunological/Allergic: No Symptoms Medications & Allergies Home Medications: Home Medication List Aspirin EC 81 mg [Ecotrin 81 mg] 81 mg PO HS 02/05/24 [History Confirmed 03/18/24] Clonidine HCl 0.1 mg [Clonidine 0.1 mg Tablet] 0.1 mg PO HS 02/05/24 [History Confirmed 03/18/24] Metformin HCl 500 mg [Glucophage 500 MG] 500 mg PO HS 02/05/24 [History Confirmed 03/18/24] Metoprolol Tartrate 25 mg [Lopressor 25MG Tab] 25 mg PO HS 02/05/24 [History Confirmed 03/18/24] Ezetimibe 10 mg [Zetia 10 MG] 10 mg PO HS 03/18/24 [History Confirmed 03/18/24] Olanzapine 5 mg [zyPREXA 5MG TABLET] 10 mg PO HS 03/18/24 [History Confirmed 03/18/24] Simvastatin 20Mg [Zocor 20Mg] 40 mg PO HS 03/18/24 [History Confirmed 03/18/24] Tamsulosin HCl 0.4 mg [Flomax 0.4 MG] 0.4 mg PO HS 03/18/24 [History Confirmed 03/18/24] Allergies/Adverse Reactions: Allergies Allergy/AdvReac Type Severity Reaction Status Date / Time No Known Drug Allergies Allergy Verified 03/18/24 10:48 - Past Medical History Past Medical History: Yes Cardiac History: Hypertension Endocrine Medical History: Diabetes Type II - Past Surgical History Past Surgical History: Yes Other Surgical History: something removed from left ear - Social History Smoking Status: Former smoker How long have you smoked: 60 years Exposure to second hand smoke: No Alcohol: None Drug Use: none - Social Determinants of Health Will the patient participate in the screening: Declined to provide - Physical Exam Vital Signs: Vital Signs - 24 hr Temp Pulse Resp BP BP Pulse Ox 03/18/24 14:00 97 03/18/24 13:31 81 33 H 103/58 99 03/18/24 13:00 76 24 112/63 67 L 03/18/24 12:36 71 29 H 109/69 99 03/18/24 12:16 101/51 92 L 03/18/24 11:30 81/49 03/18/24 11:12 95 03/18/24 11:07 77/49 96 03/18/24 11:04 76/42 96 03/18/24 11:02 96 03/18/24 10:44 90/53 97 03/18/24 10:40 98.9 F 85 85/49 97 General Appearance: no apparent distress Neurologic Exam: alert, oriented x 3, cooperative Eye Exam: PERRL/EOMI Ears, Nose, Throat Exam: normal ENT inspection Neck Exam: normal inspection Respiratory Exam: normal breath sounds, lungs clear Rectal Exam: deferred Back Exam: normal inspection Extremity Exam: normal inspection Skin Exam: normal color Results - Labs Lab/Micro Results: Lab Results-Last 24 Hours 03/18/24 03/18/24 03/18/24 Range/Units 11:08 11:08 11:12 WBC 18.3 H (4.23-9.07) x10^3/uL RBC 3.94 L (4.63-6.08) x10^6/uL Hgb 11.7 L (13.7-17.5) g/dL Hct 34.0 L (40.1-51.0) % MCV 86.3 (79.0-92.2) fL MCH 29.7 (25.7-32.2) pg MCHC 34.4 (32.3-36.5) g/dL RDW 12.5 (11.6-14.4) % Plt Count 280 (163-337) x10^3/uL MPV 9.1 L (9.4-12.4) fL Gran % 80.7 H (34.0-67.9) % Immature Gran % (Auto) 0.7 H (0.001-0.429) % Nucleat RBC Rel Count 0.0 (0.00-0.2) % Eos # (Auto) 0.06 (0.04-0.54) x10^3/uL Immature Gran # (Auto) 0.13 H (0.001-0.031) x10^3u/L Absolute Lymphs (auto) 1.55 (1.32-3.57) x10^3/uL Absolute Monos (auto) 1.73 H (0.30-0.82) x10^3/uL Absolute Nucleated RBC 0.00 (0.00-0.012) x10^3u/L Lymphocytes % 8.5 L (21.8-53.1) % Monocytes % 9.4 (5.3-12.2) % Eosinophils % 0.3 L (0.8-7.0) % Basophils % 0.4 (0.2-1.2) % Absolute Granulocytes 14.76 H (1.78-5.38) x10^3/uL Basophils # 0.08 (0.01-0.08) x10^3/uL pO2/FiO2 Ratio % VBG pH (7.32-7.42) VBG pCO2 at Pat Temp (42-55) mm/Hg VBG pO2 at Pat Temp (25-40) mm/Hg VBG HCO3 (22-28) meq/L VBG O2 Sat (Vivek) (95-100) VBG Base Excess (-2.0-2.0) VBG Hemoglobin VBG Carboxyhemoglobin (0.0-6.9) % T HGB POC Potassium (3.5-5.1) Sodium 123 L (135-145) mmol/L Potassium 4.3 (3.5-5.1) mmol/L Chloride 92 L (98-107) mmol/L Carbon Dioxide 21 L (22-30) mmol/L Anion Gap 15.0 (5-15) MEQ/L BUN 62 H (9-20) mg/dL Creatinine 3.06 H (0.66-1.25) mg/dL Estimated GFR 20.6 ML/MIN Glucose 122 H (74-106) mg/dL Lactic Acid (0.4-2.0) Calcium 9.0 (8.4-10.2) mg/dL Total Bilirubin 1.20 (0.2-1.3) mg/dL AST 30 (17-59) U/L ALT 26 (0-50) U/L Alkaline Phosphatase 67 (38-126) U/L Serum Total Protein 7.3 (6.3-8.2) g/dL Albumin 4.0 (3.5-5.0) g/dL Procalcitonin (0.030-0.080) ng/mL Urine Color Yellow (Yellow) Urine Appearance Cloudy A (Clear) Urine pH 8.0 (4.6-8.0) Ur Specific [place] 1.010 (1.005-1.030) Urine Protein 100 A (Negative) Urine Glucose (UA) Negative (Negative) mg/dL Urine Ketones Negative (Negative) Urine Blood Moderate A (Negative) Urine Nitrite Negative (Negative) Urine Bilirubin Negative (Negative) Urine Urobilinogen 0.2 (0.2) mg/dL Ur Leukocyte Esterase Large A (Negative) U Hyaline Cast (Auto) 6-10 A (0-2) /LPF Urine Microscopic RBC 6-10 A (0-5) /HPF Urine Microscopic WBC >100 A (0-5) /HPF Ur Epithelial Cells None Seen (None Seen) /HPF Urine Bacteria Many A (None Seen) /HPF Urine Culture Reflexed YES (NO) Slides for Path Review YES 03/18/24 03/18/24 03/18/24 Range/Units 11:20 11:20 11:21 WBC (4.23-9.07) x10^3/uL RBC (4.63-6.08) x10^6/uL Hgb (13.7-17.5) g/dL Hct (40.1-51.0) % MCV (79.0-92.2) fL MCH (25.7-32.2) pg MCHC (32.3-36.5) g/dL RDW (11.6-14.4) % Plt Count (163-337) x10^3/uL MPV (9.4-12.4) fL Gran % (34.0-67.9) % Immature Gran % (Auto) (0.001-0.429) % Nucleat RBC Rel Count (0.00-0.2) % Eos # (Auto) (0.04-0.54) x10^3/uL Immature Gran # (Auto) (0.001-0.031) x10^3u/L Absolute Lymphs (auto) (1.32-3.57) x10^3/uL Absolute Monos (auto) (0.30-0.82) x10^3/uL Absolute Nucleated RBC (0.00-0.012) x10^3u/L Lymphocytes % (21.8-53.1) % Monocytes % (5.3-12.2) % Eosinophils % (0.8-7.0) % Basophils % (0.2-1.2) % Absolute Granulocytes (1.78-5.38) x10^3/uL Basophils # (0.01-0.08) x10^3/uL pO2/FiO2 Ratio 21.0 % VBG pH 7.43 H (7.32-7.42) VBG pCO2 at Pat Temp 32 L (42-55) mm/Hg VBG pO2 at Pat Temp 42 H (25-40) mm/Hg VBG HCO3 21.2 L (22-28) meq/L VBG O2 Sat (Vivek) 80.5 L (95-100) VBG Base Excess -2.4 L (-2.0-2.0) VBG Hemoglobin 12.2 VBG Carboxyhemoglobin 3.6 (0.0-6.9) % T HGB POC Potassium 4.3 (3.5-5.1) Sodium (135-145) mmol/L Potassium (3.5-5.1) mmol/L Chloride (98-107) mmol/L Carbon Dioxide (22-30) mmol/L Anion Gap (5-15) MEQ/L BUN (9-20) mg/dL Creatinine (0.66-1.25) mg/dL Estimated GFR ML/MIN Glucose (74-106) mg/dL Lactic Acid 1.5 (0.4-2.0) Calcium (8.4-10.2) mg/dL Total Bilirubin (0.2-1.3) mg/dL AST (17-59) U/L ALT (0-50) U/L Alkaline Phosphatase (38-126) U/L Serum Total Protein (6.3-8.2) g/dL Albumin (3.5-5.0) g/dL Procalcitonin 0.368 H (0.030-0.080) ng/mL Urine Color (Yellow) Urine Appearance (Clear) Urine pH (4.6-8.0) Ur Specific [place] (1.005-1.030) Urine Protein (Negative) Urine Glucose (UA) (Negative) mg/dL Urine Ketones (Negative) Urine Blood (Negative) Urine Nitrite (Negative) Urine Bilirubin (Negative) Urine Urobilinogen (0.2) mg/dL Ur Leukocyte Esterase (Negative) U Hyaline Cast (Auto) (0-2) /LPF Urine Microscopic RBC (0-5) /HPF Urine Microscopic WBC (0-5) /HPF Ur Epithelial Cells (None Seen) /HPF Urine Bacteria (None Seen) /HPF Urine Culture Reflexed (NO) Slides for Path Review - Radiology Impressions Radiology Exams & Impressions: Radiology Procedures Category Date Time Status ABDOMEN AND PELVIS W/0 CONTRAS [CT] Stat Exams 03/18/24 11:50 Completed Assessment/Plan (1) Sepsis Current Visit: Yes Status: Acute Assessment & Plan: -CT abdomen and pelvis showing 3 small hypodense lesions are seen in the right lobe of liver, Small density focus within the gall bladder DD Fold or stone needs Ultrasound correlation, Bilateral mild to moderate hydroureteronephrosis with bilateral perinephricfat stranding noted. Both ureters are showing tortuous course with no clear stone or thickening. Urinary bladder showed thickened wall with multiple diverticula, the largest one seen in the posterior aspect measuring 5x4 cm in diameter. Right side kidney midpole shows a 9x9 mm high-density focal lesion. DD proteinous cyst. -UA suggestive of UTI - most likely source of infection -meets criteria with RR, leukocytosis and known source of infection - septic shock with hypotension/TARYN -LA wnl/PCT elevated at 0.368/blood and urine cultures pending -WBC at 18.3 -trend -supplemental oxygen with spo2 goal of > 92% -ABG prn if significant hypoxia/lethargy -Received 2L fluid bolus - continue IVF -Strict I&O - monitor for fluid overload -Target MAP>65 - if patient remains hypotensive consider levophed drip -CXR -Levaquin initiated in ED - continue ceftriaxone - follow cultures (2) UTI (urinary tract infection) Current Visit: Yes Status: Acute Assessment & Plan: -see sepsis -Failed outpatient treatment with Keflex and Macrobid. Previous urine culture in January showing contaminant Code(s): N39.0 - URINARY TRACT INFECTION, SITE NOT SPECIFIED (3) Hypotension Current Visit: Yes Status: Acute Assessment & Plan: -Most likely secondary to sepsis- see plan above -hold anti-hypertensives Code(s): I95.9 - HYPOTENSION, UNSPECIFIED (4) Hyponatremia Current Visit: Yes Status: Acute Assessment & Plan: -Continue IVF -sodium improving Code(s): E87.1 - HYPO-OSMOLALITY AND HYPONATREMIA (5) TARYN (acute kidney injury) Current Visit: Yes Status: Acute Assessment & Plan: -secondary to infection/urinary retention/hypovolemia -Monitor renal/lytes daily -avoid nephrotoxic medications Code(s): N17.9 - ACUTE KIDNEY FAILURE, UNSPECIFIED (6) Diabetes mellitus Current Visit: Yes Status: Acute Assessment & Plan: -Last A1c on file 02/05/24 at 6.03 -ADA diet -SSI Code(s): E11.9 - TYPE 2 DIABETES MELLITUS WITHOUT COMPLICATIONS (7) Marcel-tachy syndrome Current Visit: Yes Status: Acute Assessment & Plan: -Noted on recent holter -monitor testing from 02/05/24 - planned pacemaker placement in 2 weeks Code(s): I49.5 - SICK SINUS SYNDROME (8) Former smoker Current Visit: Yes Status: Acute Assessment & Plan: -Quit 1.5 months ago Code(s): Z87.891 - PERSONAL HISTORY OF NICOTINE DEPENDENCE (9) HLD (hyperlipidemia) Current Visit: Yes Status: Acute Assessment & Plan: -continue statin Code(s): E78.5 - HYPERLIPIDEMIA, UNSPECIFIED (10) Urinary retention due to benign prostatic hyperplasia Current Visit: Yes Status: Acute Assessment & Plan: -as noted on CT scan -FC -Flomax -continue -Urology follow up as OP -Monitor urine output closely - q2H - large clots may clog muse VTE: lovenox/ASA- hold due to hematuria Dispo: 2-3 days PPI:Protonix Code(s): N40.1 - BENIGN PROSTATIC HYPERPLASIA WITH LOWER URINARY TRACT SYMP; R33.8 - OTHER RETENTION OF URINE Telemedicine Encounter - Telemedicine Encounter Telemedicine Encounter: "The entirety of this encounter was performed via Telemedicine" This visit was performed using real-time audio and video connection [facility] location[facility] the assistance of a surrogateat the [facility] location. Written or verbal consent was obtained from the patient/guardian to perform this [facility]. Any patient questions regarding the telemedicine interaction were answered. <BETH DODSON - Last Filed: 03/18/24 21:30> History of Present Illness - Chief Complaint History of Present Illness: is a 73 year old male. - Physical Exam Vital Signs: Vital Signs - 24 hr Temp Pulse Resp BP BP Pulse Ox 03/18/24 18:59 99.1 F 03/18/24 17:39 100.9 F 03/18/24 16:41 86 18 96 03/18/24 15:15 101.3 F 100 H 22 107/57 96 03/18/24 14:00 97 03/18/24 14:00 86 30 H 118/100 98 03/18/24 13:31 81 33 H 103/58 99 03/18/24 13:00 76 24 112/63 67 L 03/18/24 12:36 71 29 H 109/69 99 03/18/24 12:16 101/51 92 L 03/18/24 11:30 81/49 03/18/24 11:12 95 03/18/24 11:07 77/49 96 03/18/24 11:04 76/42 96 03/18/24 11:02 96 03/18/24 10:44 90/53 97 03/18/24 10:40 98.9 F 85 85/49 97 Results - Labs Lab/Micro Results: Lab Results-Last 24 Hours 03/18/24 03/18/24 03/18/24 Range/Units 11:08 11:08 11:12 WBC 18.3 H (4.23-9.07) x10^3/uL RBC 3.94 L (4.63-6.08) x10^6/uL Hgb 11.7 L (13.7-17.5) g/dL Hct 34.0 L (40.1-51.0) % MCV 86.3 (79.0-92.2) fL MCH 29.7 (25.7-32.2) pg MCHC 34.4 (32.3-36.5) g/dL RDW 12.5 (11.6-14.4) % Plt Count 280 (163-337) x10^3/uL MPV 9.1 L (9.4-12.4) fL Gran % 80.7 H (34.0-67.9) % Immature Gran % (Auto) 0.7 H (0.001-0.429) % Nucleat RBC Rel Count 0.0 (0.00-0.2) % Eos # (Auto) 0.06 (0.04-0.54) x10^3/uL Immature Gran # (Auto) 0.13 H (0.001-0.031) x10^3u/L Absolute Lymphs (auto) 1.55 (1.32-3.57) x10^3/uL Absolute Monos (auto) 1.73 H (0.30-0.82) x10^3/uL Absolute Nucleated RBC 0.00 (0.00-0.012) x10^3u/L Lymphocytes % 8.5 L (21.8-53.1) % Monocytes % 9.4 (5.3-12.2) % Eosinophils % 0.3 L (0.8-7.0) % Basophils % 0.4 (0.2-1.2) % Absolute Granulocytes 14.76 H (1.78-5.38) x10^3/uL Basophils # 0.08 (0.01-0.08) x10^3/uL pO2/FiO2 Ratio % VBG pH (7.32-7.42) VBG pCO2 at Pat Temp (42-55) mm/Hg VBG pO2 at Pat Temp (25-40) mm/Hg VBG HCO3 (22-28) meq/L VBG O2 Sat (Vivek) (95-100) VBG Base Excess (-2.0-2.0) VBG Hemoglobin VBG Carboxyhemoglobin (0.0-6.9) % T HGB POC Potassium (3.5-5.1) Sodium 123 L (135-145) mmol/L Potassium 4.3 (3.5-5.1) mmol/L Chloride 92 L (98-107) mmol/L Carbon Dioxide 21 L (22-30) mmol/L Anion Gap 15.0 (5-15) MEQ/L BUN 62 H (9-20) mg/dL Creatinine 3.06 H (0.66-1.25) mg/dL Estimated GFR 20.6 ML/MIN Glucose 122 H (74-106) mg/dL POC Glucometer (74 to 106) mg/dL Lactic Acid (0.4-2.0) Calcium 9.0 (8.4-10.2) mg/dL Total Bilirubin 1.20 (0.2-1.3) mg/dL AST 30 (17-59) U/L ALT 26 (0-50) U/L Alkaline Phosphatase 67 (38-126) U/L Serum Total Protein 7.3 (6.3-8.2) g/dL Albumin 4.0 (3.5-5.0) g/dL Procalcitonin (0.030-0.080) ng/mL Urine Color Yellow (Yellow) Urine Appearance Cloudy A (Clear) Urine pH 8.0 (4.6-8.0) Ur Specific [place] 1.010 (1.005-1.030) Urine Protein 100 A (Negative) Urine Glucose (UA) Negative (Negative) mg/dL Urine Ketones Negative (Negative) Urine Blood Moderate A (Negative) Urine Nitrite Negative (Negative) Urine Bilirubin Negative (Negative) Urine Urobilinogen 0.2 (0.2) mg/dL Ur Leukocyte Esterase Large A (Negative) U Hyaline Cast (Auto) 6-10 A (0-2) /LPF Urine Microscopic RBC 6-10 A (0-5) /HPF Urine Microscopic WBC >100 A (0-5) /HPF Ur Epithelial Cells None Seen (None Seen) /HPF Urine Bacteria Many A (None Seen) /HPF Urine Culture Reflexed YES (NO) Slides for Path Review YES 03/18/24 03/18/24 03/18/24 Range/Units 11:20 11:20 11:21 WBC (4.23-9.07) x10^3/uL RBC (4.63-6.08) x10^6/uL Hgb (13.7-17.5) g/dL Hct (40.1-51.0) % MCV (79.0-92.2) fL MCH (25.7-32.2) pg MCHC (32.3-36.5) g/dL RDW (11.6-14.4) % Plt Count (163-337) x10^3/uL MPV (9.4-12.4) fL Gran % (34.0-67.9) % Immature Gran % (Auto) (0.001-0.429) % Nucleat RBC Rel Count (0.00-0.2) % Eos # (Auto) (0.04-0.54) x10^3/uL Immature Gran # (Auto) (0.001-0.031) x10^3u/L Absolute Lymphs (auto) (1.32-3.57) x10^3/uL Absolute Monos (auto) (0.30-0.82) x10^3/uL Absolute Nucleated RBC (0.00-0.012) x10^3u/L Lymphocytes % (21.8-53.1) % Monocytes % (5.3-12.2) % Eosinophils % (0.8-7.0) % Basophils % (0.2-1.2) % Absolute Granulocytes (1.78-5.38) x10^3/uL Basophils # (0.01-0.08) x10^3/uL pO2/FiO2 Ratio 21.0 % VBG pH 7.43 H (7.32-7.42) VBG pCO2 at Pat Temp 32 L (42-55) mm/Hg VBG pO2 at Pat Temp 42 H (25-40) mm/Hg VBG HCO3 21.2 L (22-28) meq/L VBG O2 Sat (Vivek) 80.5 L (95-100) VBG Base Excess -2.4 L (-2.0-2.0) VBG Hemoglobin 12.2 VBG Carboxyhemoglobin 3.6 (0.0-6.9) % T HGB POC Potassium 4.3 (3.5-5.1) Sodium (135-145) mmol/L Potassium (3.5-5.1) mmol/L Chloride (98-107) mmol/L Carbon Dioxide (22-30) mmol/L Anion Gap (5-15) MEQ/L BUN (9-20) mg/dL Creatinine (0.66-1.25) mg/dL Estimated GFR ML/MIN Glucose (74-106) mg/dL POC Glucometer (74 to 106) mg/dL Lactic Acid 1.5 (0.4-2.0) Calcium (8.4-10.2) mg/dL Total Bilirubin (0.2-1.3) mg/dL AST (17-59) U/L ALT (0-50) U/L Alkaline Phosphatase (38-126) U/L Serum Total Protein (6.3-8.2) g/dL Albumin (3.5-5.0) g/dL Procalcitonin 0.368 H (0.030-0.080) ng/mL Urine Color (Yellow) Urine Appearance (Clear) Urine pH (4.6-8.0) Ur Specific [place] (1.005-1.030) Urine Protein (Negative) Urine Glucose (UA) (Negative) mg/dL Urine Ketones (Negative) Urine Blood (Negative) Urine Nitrite (Negative) Urine Bilirubin (Negative) Urine Urobilinogen (0.2) mg/dL Ur Leukocyte Esterase (Negative) U Hyaline Cast (Auto) (0-2) /LPF Urine Microscopic RBC (0-5) /HPF Urine Microscopic WBC (0-5) /HPF Ur Epithelial Cells (None Seen) /HPF Urine Bacteria (None Seen) /HPF Urine Culture Reflexed (NO) Slides for Path Review 03/18/24 03/18/24 03/18/24 Range/Units 14:50 16:48 19:25 WBC (4.23-9.07) x10^3/uL RBC (4.63-6.08) x10^6/uL Hgb 11.0 L (13.7-17.5) g/dL Hct 31.3 L (40.1-51.0) % MCV (79.0-92.2) fL MCH (25.7-32.2) pg MCHC (32.3-36.5) g/dL RDW (11.6-14.4) % Plt Count (163-337) x10^3/uL MPV (9.4-12.4) fL Gran % (34.0-67.9) % Immature Gran % (Auto) (0.001-0.429) % Nucleat RBC Rel Count (0.00-0.2) % Eos # (Auto) (0.04-0.54) x10^3/uL Immature Gran # (Auto) (0.001-0.031) x10^3u/L Absolute Lymphs (auto) (1.32-3.57) x10^3/uL Absolute Monos (auto) (0.30-0.82) x10^3/uL Absolute Nucleated RBC (0.00-0.012) x10^3u/L Lymphocytes % (21.8-53.1) % Monocytes % (5.3-12.2) % Eosinophils % (0.8-7.0) % Basophils % (0.2-1.2) % Absolute Granulocytes (1.78-5.38) x10^3/uL Basophils # (0.01-0.08) x10^3/uL pO2/FiO2 Ratio % VBG pH (7.32-7.42) VBG pCO2 at Pat Temp (42-55) mm/Hg VBG pO2 at Pat Temp (25-40) mm/Hg VBG HCO3 (22-28) meq/L VBG O2 Sat (Vivek) (95-100) VBG Base Excess (-2.0-2.0) VBG Hemoglobin VBG Carboxyhemoglobin (0.0-6.9) % T HGB POC Potassium (3.5-5.1) Sodium 128 L (135-145) mmol/L Potassium 3.8 (3.5-5.1) mmol/L Chloride 96 L (98-107) mmol/L Carbon Dioxide 19 L (22-30) mmol/L Anion Gap 16.9 H (5-15) MEQ/L BUN 58 H (9-20) mg/dL Creatinine 2.74 H (0.66-1.25) mg/dL Estimated GFR 23.6 ML/MIN Glucose 108 H (74-106) mg/dL POC Glucometer 118 H (74 to 106) mg/dL Lactic Acid (0.4-2.0) Calcium 8.4 (8.4-10.2) mg/dL Total Bilirubin 1.40 H (0.2-1.3) mg/dL AST 27 (17-59) U/L ALT 24 (0-50) U/L Alkaline Phosphatase 68 (38-126) U/L Serum Total Protein 7.1 (6.3-8.2) g/dL Albumin 3.9 (3.5-5.0) g/dL Procalcitonin (0.030-0.080) ng/mL Urine Color (Yellow) Urine Appearance (Clear) Urine pH (4.6-8.0) Ur Specific [place] (1.005-1.030) Urine Protein (Negative) Urine Glucose (UA) (Negative) mg/dL Urine Ketones (Negative) Urine Blood (Negative) Urine Nitrite (Negative) Urine Bilirubin (Negative) Urine Urobilinogen (0.2) mg/dL Ur Leukocyte Esterase (Negative) U Hyaline Cast (Auto) (0-2) /LPF Urine Microscopic RBC (0-5) /HPF Urine Microscopic WBC (0-5) /HPF Ur Epithelial Cells (None Seen) /HPF Urine Bacteria (None Seen) /HPF Urine Culture Reflexed (NO) Slides for Path Review Accuchecks Date 03/18/24 Time 16:58 - Radiology Impressions Radiology Exams & Impressions: Radiology Procedures Category Date Time Status ABDOMEN AND PELVIS W/0 CONTRAS [CT] Stat Exams 03/18/24 11:50 Completed CHEST 1 VIEW (PORTABLE) Stat Exams 03/18/24 15:49 Completed - Other Procedures and Tests Respiratory Therapy 03/18/24 16:41 Respiratory Therapy Assessment DAILY Telemedicine Encounter - Telemedicine Encounter Telemedicine Encounter: "The entirety of this encounter was performed via Telemedicine" This visit was performed using real-time audio and video connection between my location and thepatients locationwith the assistance of a surrogateat the patients location. Written or verbal consent was obtained from the patient/guardian to perform this visit using[employer] technology. Any patient questions regarding the telemedicine interaction were answered. GABBY Encounter - GABBY Encounter Attestation GABBY Encounter Attestation: "IhavepersonallyseenandexMIGUEL ANGEL Lopez andhavediscussed pertinent aspects of their care with Alex Horn agree with the history, physical exam (any modifications based on my personal exam will be noted below), assessment, and plan as outlined in original note. Please see immediately below for my summary of findings and additional assessment and plan along with any meaningful corrections/explanations to the Subjective/Objective portions of the GABBY note will be noted." My portion of the encounter took place via telemedicine. -Patient presenting with severe sepsis secondary to UTI/pyelonephritis and urinary retention likely due to BPH. Started on IV antibiotics and IVFs along with placement of muse catheter for management of urinary retention. Hyponatremia likely due to urinary obstruction. Will continue to monitor with replacement of IV fluids. Watch for post obstruction diuresis and replace about half of urine output. Excess fluid replacement may exacerbate diuresis.
[2024-03-18] MEDS ORDERED: HUMALOG SQ PRN (14:43)
[2024-03-18] MEDS ORDERED: DUONEB 0.5-3 MG/3 ml Neb IH PRN (14:43)
[2024-03-18 15:17] LABS: ALBUMIN 3.9 g/dL (3.5-5.0); ANION GAP 16.9 MEQ/L (5-15); BILIRUBIN,TOTAL 1.4 mg/dL (0.2-1.3); Calcium 8.4 mg/dL (8.4-10.2); Creatinine 1 2.74 mg/dL (0.66-1.25); EST GLOMERULAR FILTRATION RATE 23.6 ML/MIN; Potassium 3.8 mmol/L (3.5-5.1); Total Protein 7.1 g/dL (6.3-8.2)
[2024-03-18] MEDS: TYLENOL 325 MG PO PRN (16:14)
--- NOTE | 2024-03-18 17:26 | XRAY ---
CLINICAL HISTORY: leukocytosis COMPARISON: No prior studies are available for comparison. TECHNIQUE: An X-ray image of the chest is obtained in AP projection. FINDINGS: Pulmonary Parenchyma: Increased bilateral bronchovascular markings. No suspicious focal lesions. No evidence of pleural effusion or pleural thickening. Heart and Mediastinum: Heart size and shape are normal. No mediastinal widening or masses. No hilar or mediastinal lymphadenopathy. The aortic knuckle demonstrates atherosclerotic calcifications. Bony Thorax: Bony thorax appears intact without fractures or deformities. Soft Tissues: Soft tissues overlying the chest wall are unremarkable. IMPRESSION: Mild prominence of perihilar vascular markings probably due to mild pulmonary vascular congestion. Clinical correlation is suggested Electronically Signed by: Viviana Sheth MD. (03/18/2024 17:21:43 EDT)
[2024-03-18 19:34] LABS: Hematocrit 31.3 % (40.1-51.0)
[2024-03-18] MEDS: Sodium Chloride 0.9% 1000 ML 1,000 ML IV STA (21:03)
[2024-03-18] MEDS: ZOCOR 20MG PO SCH (22:55)
[2024-03-18] MEDS: zyPREXA 5MG TABLET PO SCH (22:55)
[2024-03-18] MEDS: Zetia 10 MG PO SCH (22:55)
[2024-03-19] MEDS: Sodium Chloride 0.9% 1000 ML 1,000 ML IV SCH ×2 (00:35→01:36)
[2024-03-19 04:58] LABS: Absolute Neutrophil Ct (ANC) 15.61 x10^3/uL (1.78-5.38); BASOPHIL % 0.4 % (0.2-1.2); Basophil (Absolute #) 0.07 x10^3/uL (0.01-0.08); Eosinophil % 0.3 % (0.8-7.0); Eosinophil (Absolute #) 0.06 x10^3/uL (0.04-0.54); Hematocrit 32.2 % (40.1-51.0); IMMATURE GRAN # 0.17 x10^3u/L (0.001-0.031); IMMATURE GRAN % 0.9 % (0.001-0.429); Lymphocyte (Absolute #) 1.08 x10^3/uL (1.32-3.57); Lymphocytes % 5.8 % (21.8-53.1); Mean Cell Volume 87.3 fL (79.0-92.2); Mean Corpuscular Hemoglobin 29.8 pg (25.7-32.2); Mean Corpuscular Hgb Concent. 34.2 g/dL (32.3-36.5); Mean Platelet Volume 9.2 fL (9.4-12.4); Monocytes % 8.1 % (5.3-12.2); Neutrophil % 84.5 % (34.0-67.9); Platelet Count 272 x10^3/uL (163-337); Red Blood Count 3.69 x10^6/uL (4.63-6.08); Red Cell Distribution Width 12.9 % (11.6-14.4); White Blood Count 18.5 x10^3/uL (4.23-9.07)
[2024-03-19 05:38] LABS: ALBUMIN 3.3 g/dL (3.5-5.0); ANION GAP 14.1 MEQ/L (5-15); Calcium 8.3 mg/dL (8.4-10.2); Creatinine 1 2.25 mg/dL (0.66-1.25); EST GLOMERULAR FILTRATION RATE 29.9 ML/MIN; Potassium 3.6 mmol/L (3.5-5.1); Total Protein 6.3 g/dL (6.3-8.2)
[2024-03-19] MEDS: ROCEPHIN 2 GM/100 ML NACL 2 GM/100 ML IVPB IV SCH (09:37)
[2024-03-19] MEDS: Flomax 0.4 MG PO SCH (09:37)
[2024-03-19] MEDS ORDERED: ENOXAPARIN SODIUM SQ SCH (10:00)
--- NOTE | 2024-03-19 11:33 | PCM.NOTE ---
Date and Time: 03/19/24 1127 Subjective Assessment: is a 73 year old male with a pmhx of BPH (on flomax), HLD, amara-tachy syndrome (pacemaker placement scheduled in 2 weeks), DM and HTN. He presented to ED 03/18/24 with complaints of painful urination for three days. Of note ED visit 02/05/24 for which he was treated for UTI with Keflex. Reviewed previous culture showing probable skin contaminant. Patient reports dysuria, frequency, and retention since about January with symptoms worsening over the past few days. Denies hematuria at home, no flank or back pain, nausea, vomiting, or diarrhea. Patient is febrile during interview with temp of 101.3. States he does not recall having fever or chills previously. Muse placed in ED due to urinary retention with noted pyuria, hematuria, and large blood clots in muse bag. Upon arrival to ED, patient was tachypneic and hypotensive with bp 85/49 but later dropping in the 70's/40's. BP improved with fluid resusitation. CT abdomen and pelvis showing 3 small hypodense lesions are seen in the right lobe of liver, Small density focus within the gallbladder DD Fold or stone needs Ultrasound correlation, Bilateral mild to moderate hydroureteronephrosis with bilateral perinephricfat stranding noted. Both ureters are showing tortuous course with no clear stone or thickening. Urinary bladder showed thickened wall with multiple diverticula, the largest one seen in the posterior aspect measuring 5x4 cm in diameter. Right side kidney midpole shows a 9x9 mm high-density focal lesion. DD proteinous cyst. Lab findings remarkable for leukocytosis at 18.3, normocytic anemia with hgb at 11.7, hyponatremia at 123, TARYN with creat at 3.06 (baseline unknown - previous visit showing 1.89). UA suspicious for infection. Patient given levaquin in ED and 2L fluid bolus. Today BP improved but has continued gross hematuria with clots. CBI started. Consider transfer if does not improve. Overnight he had a temp of 101.4 and 100.4. BCx2 and UC pending. He reports never seeing a urologist before. Continue IV antibiotics and IVF. He states he overall does not feel well. - Review of Systems Constitutional: Fever, Fatigue, No Chills Eyes: No Symptoms Ears, Nose, & Throat: No Symptoms Respiratory: No Cough, No Short Of Breath Cardiac: No Chest Pain, No Edema, No Syncope Abdominal/Gastrointestinal: No Abdominal Pain, No Nausea, No Vomiting, No Diarrhea Genitourinary Symptoms: Hematuria, No Dysuria Musculoskeletal: No Back Pain, No Neck Pain Skin: No Rash Neurological: No Dizziness, No Focal Weakness, No Sensory Changes Psychological: No Symptoms Endocrine: No Symptoms Hematologic/Lymphatic: No Symptoms Immunological/Allergic: No Symptoms Objective Exam General Appearance: no apparent distress, alert Neurologic Exam: alert, oriented x 3, cooperative, normal mood/affect, nml cerebellar function, sensation nml, No motor deficits Skin Exam: normal color, warm, dry Eye Exam: PERRL, EOMI, eyes nml inspection Ears, Nose, Throat Exam: normal ENT inspection, pharynx normal, moist mucous membranes Neck Exam: normal inspection, non-tender, supple, full range of motion Respiratory Exam: normal breath sounds, lungs clear, No respiratory distress Cardiovascular Exam: regular rate/rhythm, normal heart sounds Gastrointestinal/Abdomen Exam: soft, No tenderness, No mass Extremity Exam: normal inspection, normal range of motion Back Exam: normal inspection, normal range of motion, No CVA tenderness, No vertebral tenderness Male Genitalia Exam: deferred Rectal Exam: deferred Objective Data Vital Signs: Vital Signs - 24 hr Temp Pulse Resp BP BP Pulse Ox 03/19/24 08:36 98.5 F 88 16 90/50 94 L 03/19/24 07:21 86 18 94 L 03/19/24 05:15 100.4 F 03/19/24 04:00 101.4 F 89 20 109/62 94 L 03/19/24 01:40 88 122/60 03/19/24 00:00 98.3 F 74 20 91/55 95 03/18/24 22:56 78 93/51 03/18/24 22:09 74 90/53 03/18/24 20:45 98.9 F 75 18 72/48 95 03/18/24 18:59 99.1 F 03/18/24 17:39 100.9 F 03/18/24 16:41 86 18 96 03/18/24 15:15 101.3 F 100 H 22 107/57 96 03/18/24 14:00 97 03/18/24 14:00 86 30 H 118/100 98 09/22/24 13:31 81 33 H 103/58 99 03/18/24 13:00 76 24 112/63 67 L 03/18/24 12:36 71 29 H 109/69 99 03/18/24 12:16 101/51 92 L 03/18/24 11:30 81/49 Pain Assessment - Last Documented Pain Intensity 0 Intake and Output: Intake & Output 03/16/24 03/17/24 03/18/24 03/19/24 11:59 11:59 11:59 11:59 Intake Total 4097 Output Total 6300 Balance -2203 Weight 83.007 kg 83.1 kg Lab Results: Lab Results-Last 24 Hours 03/18/24 03/18/24 03/18/24 Range/Units 11:08 11:08 11:12 WBC 18.3 H (4.23-9.07) x10^3/uL RBC 3.94 L (4.63-6.08) x10^6/uL Hgb 11.7 L (13.7-17.5) g/dL Hct 34.0 L (40.1-51.0) % MCV 86.3 (79.0-92.2) fL MCH 29.7 (25.7-32.2) pg MCHC 34.4 (32.3-36.5) g/dL RDW 12.5 (11.6-14.4) % Plt Count 280 (163-337) x10^3/uL MPV 9.1 L (9.4-12.4) fL Gran % 80.7 H (34.0-67.9) % Immature Gran % (Auto) 0.7 H (0.001-0.429) % Nucleat RBC Rel Count 0.0 (0.00-0.2) % Eos # (Auto) 0.06 (0.04-0.54) x10^3/uL Immature Gran # (Auto) 0.13 H (0.001-0.031) x10^3u/L Absolute Lymphs (auto) 1.55 (1.32-3.57) x10^3/uL Absolute Monos (auto) 1.73 H (0.30-0.82) x10^3/uL Absolute Nucleated RBC 0.00 (0.00-0.012) x10^3u/L Lymphocytes % 8.5 L (21.8-53.1) % Monocytes % 9.4 (5.3-12.2) % Eosinophils % 0.3 L (0.8-7.0) % Basophils % 0.4 (0.2-1.2) % Absolute Granulocytes 14.76 H (1.78-5.38) x10^3/uL Basophils # 0.08 (0.01-0.08) x10^3/uL Sodium 123 L (135-145) mmol/L Potassium 4.3 (3.5-5.1) mmol/L Chloride 92 L (98-107) mmol/L Carbon Dioxide 21 L (22-30) mmol/L Anion Gap 15.0 (5-15) MEQ/L BUN 62 H (9-20) mg/dL Creatinine 3.06 H (0.66-1.25) mg/dL Estimated GFR 20.6 ML/MIN Glucose 122 H (74-106) mg/dL POC Glucometer (74 to 106) mg/dL Lactic Acid (0.4-2.0) Calcium 9.0 (8.4-10.2) mg/dL Total Bilirubin 1.20 (0.2-1.3) mg/dL AST 30 (17-59) U/L ALT 26 (0-50) U/L Alkaline Phosphatase 67 (38-126) U/L Serum Total Protein 7.3 (6.3-8.2) g/dL Albumin 4.0 (3.5-5.0) g/dL Procalcitonin (0.030-0.080) ng/mL Urine Color Yellow (Yellow) Urine Appearance Cloudy A (Clear) Urine pH 8.0 (4.6-8.0) Ur Specific Mathews 1.010 (1.005-1.030) Urine Protein 100 A (Negative) Urine Glucose (UA) Negative (Negative) mg/dL Urine Ketones Negative (Negative) Urine Blood Moderate A (Negative) Urine Nitrite Negative (Negative) Urine Bilirubin Negative (Negative) Urine Urobilinogen 0.2 (0.2) mg/dL Ur Leukocyte Esterase Large A (Negative) U Hyaline Cast (Auto) 6-10 A (0-2) /LPF Urine Microscopic RBC 6-10 A (0-5) /HPF Urine Microscopic WBC >100 A (0-5) /HPF Ur Epithelial Cells None Seen (None Seen) /HPF Urine Bacteria Many A (None Seen) /HPF Urine Culture Reflexed YES (NO) Slides for Path Review YES 03/18/24 03/18/24 03/18/24 Range/Units 11:20 11:21 14:50 WBC (4.23-9.07) x10^3/uL RBC (4.63-6.08) x10^6/uL Hgb (13.7-17.5) g/dL Hct (40.1-51.0) % MCV (79.0-92.2) fL MCH (25.7-32.2) pg MCHC (32.3-36.5) g/dL RDW (11.6-14.4) % Plt Count (163-337) x10^3/uL MPV (9.4-12.4) fL Gran % (34.0-67.9) % Immature Gran % (Auto) (0.001-0.429) % Nucleat RBC Rel Count (0.00-0.2) % Eos # (Auto) (0.04-0.54) x10^3/uL Immature Gran # (Auto) (0.001-0.031) x10^3u/L Absolute Lymphs (auto) (1.32-3.57) x10^3/uL Absolute Monos (auto) (0.30-0.82) x10^3/uL Absolute Nucleated RBC (0.00-0.012) x10^3u/L Lymphocytes % (21.8-53.1) % Monocytes % (5.3-12.2) % Eosinophils % (0.8-7.0) % Basophils % (0.2-1.2) % Absolute Granulocytes (1.78-5.38) x10^3/uL Basophils # (0.01-0.08) x10^3/uL Sodium 128 L (135-145) mmol/L Potassium 3.8 (3.5-5.1) mmol/L Chloride 96 L (98-107) mmol/L Carbon Dioxide 19 L (22-30) mmol/L Anion Gap 16.9 H (5-15) MEQ/L BUN 58 H (9-20) mg/dL Creatinine 2.74 H (0.66-1.25) mg/dL Estimated GFR 23.6 ML/MIN Glucose 108 H (74-106) mg/dL POC Glucometer (74 to 106) mg/dL Lactic Acid 1.5 (0.4-2.0) Calcium 8.4 (8.4-10.2) mg/dL Total Bilirubin 1.40 H (0.2-1.3) mg/dL AST 27 (17-59) U/L ALT 24 (0-50) U/L Alkaline Phosphatase 68 (38-126) U/L Serum Total Protein 7.1 (6.3-8.2) g/dL Albumin 3.9 (3.5-5.0) g/dL Procalcitonin 0.368 H (0.030-0.080) ng/mL Urine Color (Yellow) Urine Appearance (Clear) Urine pH (4.6-8.0) Ur Specific Mathews (1.005-1.030) Urine Protein (Negative) Urine Glucose (UA) (Negative) mg/dL Urine Ketones (Negative) Urine Blood (Negative) Urine Nitrite (Negative) Urine Bilirubin (Negative) Urine Urobilinogen (0.2) mg/dL Ur Leukocyte Esterase (Negative) U Hyaline Cast (Auto) (0-2) /LPF Urine Microscopic RBC (0-5) /HPF Urine Microscopic WBC (0-5) /HPF Ur Epithelial Cells (None Seen) /HPF Urine Bacteria (None Seen) /HPF Urine Culture Reflexed (NO) Slides for Path Review 03/18/24 03/18/24 03/18/24 Range/Units 16:48 19:25 20:40 WBC (4.23-9.07) x10^3/uL RBC (4.63-6.08) x10^6/uL Hgb 11.0 L (13.7-17.5) g/dL Hct 31.3 L (40.1-51.0) % MCV (79.0-92.2) fL MCH (25.7-32.2) pg MCHC (32.3-36.5) g/dL RDW (11.6-14.4) % Plt Count (163-337) x10^3/uL MPV (9.4-12.4) fL Gran % (34.0-67.9) % Immature Gran % (Auto) (0.001-0.429) % Nucleat RBC Rel Count (0.00-0.2) % Eos # (Auto) (0.04-0.54) x10^3/uL Immature Gran # (Auto) (0.001-0.031) x10^3u/L Absolute Lymphs (auto) (1.32-3.57) x10^3/uL Absolute Monos (auto) (0.30-0.82) x10^3/uL Absolute Nucleated RBC (0.00-0.012) x10^3u/L Lymphocytes % (21.8-53.1) % Monocytes % (5.3-12.2) % Eosinophils % (0.8-7.0) % Basophils % (0.2-1.2) % Absolute Granulocytes (1.78-5.38) x10^3/uL Basophils # (0.01-0.08) x10^3/uL Sodium (135-145) mmol/L Potassium (3.5-5.1) mmol/L Chloride (98-107) mmol/L Carbon Dioxide (22-30) mmol/L Anion Gap (5-15) MEQ/L BUN (9-20) mg/dL Creatinine (0.66-1.25) mg/dL Estimated GFR ML/MIN Glucose (74-106) mg/dL POC Glucometer 118 H 160 H (74 to 106) mg/dL Lactic Acid (0.4-2.0) Calcium (8.4-10.2) mg/dL Total Bilirubin (0.2-1.3) mg/dL AST (17-59) U/L ALT (0-50) U/L Alkaline Phosphatase (38-126) U/L Serum Total Protein (6.3-8.2) g/dL Albumin (3.5-5.0) g/dL Procalcitonin (0.030-0.080) ng/mL Urine Color (Yellow) Urine Appearance (Clear) Urine pH (4.6-8.0) Ur Specific Mathews (1.005-1.030) Urine Protein (Negative) Urine Glucose (UA) (Negative) mg/dL Urine Ketones (Negative) Urine Blood (Negative) Urine Nitrite (Negative) Urine Bilirubin (Negative) Urine Urobilinogen (0.2) mg/dL Ur Leukocyte Esterase (Negative) U Hyaline Cast (Auto) (0-2) /LPF Urine Microscopic RBC (0-5) /HPF Urine Microscopic WBC (0-5) /HPF Ur Epithelial Cells (None Seen) /HPF Urine Bacteria (None Seen) /HPF Urine Culture Reflexed (NO) Slides for Path Review 03/18/24 03/19/24 03/19/24 Range/Units 20:58 04:45 04:45 WBC 18.5 H (4.23-9.07) x10^3/uL RBC 3.69 L (4.63-6.08) x10^6/uL Hgb 11.0 L (13.7-17.5) g/dL Hct 32.2 L (40.1-51.0) % MCV 87.3 (79.0-92.2) fL MCH 29.8 (25.7-32.2) pg MCHC 34.2 (32.3-36.5) g/dL RDW 12.9 (11.6-14.4) % Plt Count 272 (163-337) x10^3/uL MPV 9.2 L (9.4-12.4) fL Gran % 84.5 H (34.0-67.9) % Immature Gran % (Auto) 0.9 H (0.001-0.429) % Nucleat RBC Rel Count 0.0 (0.00-0.2) % Eos # (Auto) 0.06 (0.04-0.54) x10^3/uL Immature Gran # (Auto) 0.17 H (0.001-0.031) x10^3u/L Absolute Lymphs (auto) 1.08 L (1.32-3.57) x10^3/uL Absolute Monos (auto) 1.50 H (0.30-0.82) x10^3/uL Absolute Nucleated RBC 0.00 (0.00-0.012) x10^3u/L Lymphocytes % 5.8 L (21.8-53.1) % Monocytes % 8.1 (5.3-12.2) % Eosinophils % 0.3 L (0.8-7.0) % Basophils % 0.4 (0.2-1.2) % Absolute Granulocytes 15.61 H (1.78-5.38) x10^3/uL Basophils # 0.07 (0.01-0.08) x10^3/uL Sodium 132 L (135-145) mmol/L Potassium 3.6 (3.5-5.1) mmol/L Chloride 103 (98-107) mmol/L Carbon Dioxide 18 L (22-30) mmol/L Anion Gap 14.1 (5-15) MEQ/L BUN 51 H (9-20) mg/dL Creatinine 2.25 H (0.66-1.25) mg/dL Estimated GFR 29.9 ML/MIN Glucose 116 H (74-106) mg/dL POC Glucometer (74 to 106) mg/dL Lactic Acid 0.7 (0.4-2.0) Calcium 8.3 L (8.4-10.2) mg/dL Total Bilirubin 1.00 (0.2-1.3) mg/dL AST 26 (17-59) U/L ALT 20 (0-50) U/L Alkaline Phosphatase 61 (38-126) U/L Serum Total Protein 6.3 (6.3-8.2) g/dL Albumin 3.3 L (3.5-5.0) g/dL Procalcitonin (0.030-0.080) ng/mL Urine Color (Yellow) Urine Appearance (Clear) Urine pH (4.6-8.0) Ur Specific Mathews (1.005-1.030) Urine Protein (Negative) Urine Glucose (UA) (Negative) mg/dL Urine Ketones (Negative) Urine Blood (Negative) Urine Nitrite (Negative) Urine Bilirubin (Negative) Urine Urobilinogen (0.2) mg/dL Ur Leukocyte Esterase (Negative) U Hyaline Cast (Auto) (0-2) /LPF Urine Microscopic RBC (0-5) /HPF Urine Microscopic WBC (0-5) /HPF Ur Epithelial Cells (None Seen) /HPF Urine Bacteria (None Seen) /HPF Urine Culture Reflexed (NO) Slides for Path Review 03/19/24 03/19/24 Range/Units 07:04 10:58 WBC (4.23-9.07) x10^3/uL RBC (4.63-6.08) x10^6/uL Hgb (13.7-17.5) g/dL Hct (40.1-51.0) % MCV (79.0-92.2) fL MCH (25.7-32.2) pg MCHC (32.3-36.5) g/dL RDW (11.6-14.4) % Plt Count (163-337) x10^3/uL MPV (9.4-12.4) fL Gran % (34.0-67.9) % Immature Gran % (Auto) (0.001-0.429) % Nucleat RBC Rel Count (0.00-0.2) % Eos # (Auto) (0.04-0.54) x10^3/uL Immature Gran # (Auto) (0.001-0.031) x10^3u/L Absolute Lymphs (auto) (1.32-3.57) x10^3/uL Absolute Monos (auto) (0.30-0.82) x10^3/uL Absolute Nucleated RBC (0.00-0.012) x10^3u/L Lymphocytes % (21.8-53.1) % Monocytes % (5.3-12.2) % Eosinophils % (0.8-7.0) % Basophils % (0.2-1.2) % Absolute Granulocytes (1.78-5.38) x10^3/uL Basophils # (0.01-0.08) x10^3/uL Sodium (135-145) mmol/L Potassium (3.5-5.1) mmol/L Chloride (98-107) mmol/L Carbon Dioxide (22-30) mmol/L Anion Gap (5-15) MEQ/L BUN (9-20) mg/dL Creatinine (0.66-1.25) mg/dL Estimated GFR ML/MIN Glucose (74-106) mg/dL POC Glucometer 152 H 125 H (74 to 106) mg/dL Lactic Acid (0.4-2.0) Calcium (8.4-10.2) mg/dL Total Bilirubin (0.2-1.3) mg/dL AST (17-59) U/L ALT (0-50) U/L Alkaline Phosphatase (38-126) U/L Serum Total Protein (6.3-8.2) g/dL Albumin (3.5-5.0) g/dL Procalcitonin (0.030-0.080) ng/mL Urine Color (Yellow) Urine Appearance (Clear) Urine pH (4.6-8.0) Ur Specific Mathews (1.005-1.030) Urine Protein (Negative) Urine Glucose (UA) (Negative) mg/dL Urine Ketones (Negative) Urine Blood (Negative) Urine Nitrite (Negative) Urine Bilirubin (Negative) Urine Urobilinogen (0.2) mg/dL Ur Leukocyte Esterase (Negative) U Hyaline Cast (Auto) (0-2) /LPF Urine Microscopic RBC (0-5) /HPF Urine Microscopic WBC (0-5) /HPF Ur Epithelial Cells (None Seen) /HPF Urine Bacteria (None Seen) /HPF Urine Culture Reflexed (NO) Slides for Path Review Radiology Exams: Radiology Procedures Category Date Time Status ABDOMEN AND PELVIS W/0 CONTRAS [CT] Stat Exams 03/18/24 11:50 Completed CHEST 1 VIEW (PORTABLE) Stat Exams 03/18/24 15:49 Completed Assessment/Plan (1) Sepsis Current Visit: Yes Status: Acute Assessment & Plan: -CT abdomen and pelvis showing 3 small hypodense lesions are seen in the right lobe of liver, Small density focus within the gall bladder DD Fold or stone needs Ultrasound correlation, Bilateral mild to moderate hydroureteronephrosis with bilateral perinephricfat stranding noted. Both ureters are showing tortuous course with no clear stone or thickening. Urinary bladder showed thickened wall with multiple diverticula, the largest one seen in the posterior aspect measuring 5x4 cm in diameter. Right side kidney midpole shows a 9x9 mm high-density focal lesion. DD proteinous cyst. -UA suggestive of UTI - most likely source of infection -meets criteria with RR, leukocytosis and known source of infection - septic shock with hypotension/TARYN -LA wnl/PCT elevated at 0.368/blood and urine cultures pending -WBC at 18.3 -trend -supplemental oxygen with spo2 goal of > 92% -ABG prn if significant hypoxia/lethargy -Received 2L fluid bolus - continue IVF -Strict I&O - monitor for fluid overload -Target MAP>65 - if patient remains hypotensive consider levophed drip -CXR: IMPRESSION: Mild prominence of perihilar vascular markings probably due to mild pulmonary vascular congestion. Clinical correlation is suggested - RA 94% -Levaquin initiated in ED - continue ceftriaxone - follow cultures 03/19 - WBC 18.5 - temp 101.4 and 100.4 last night (2) UTI (urinary tract infection) Current Visit: Yes Status: Acute Assessment & Plan: - see sepsis plan above Code(s): N39.0 - URINARY TRACT INFECTION, SITE NOT SPECIFIED (3) Hematuria Current Visit: Yes Status: Acute Assessment & Plan: - Started CBI today with NS - Consider transfer as we do not have urology here- if sxs do not improve - CT abd/pelvis: IMPRESSION: 1. At least 3 small hypodense lesions are seen in the right lobe of liver, largest measuring about 7X 12 mm suggesting benign lesions likely hemangiomas versus hepatic cysts. 2. The gallbladder is normal in size and shape. No wall thickening, pericholecystic fluid,were identified. Small density focus within the gall bladder DD Fold or stone needs Ultrasound correlation. 3. Bilateral mild to moderate hydroureteronephrosis with bilateral perinephric fat stranding noted. 4. Both ureters are showing tortuous course with no clear stone or thickening. 5. Urinary bladder showed thickened wall with multiple diverticula, the largest one seen in the posterior aspect measuring 5x4 cm in diameter. 6. Right side kidney midpole shows a 9x9 mm high-density focal lesion. DD proteinous cyst. 7. Multiple vascular calcifications noted including the aorta and its branches. 8. 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 9. Mild enlarged Prostate. 10. Full workup with urologist and CT/MRI abdomen with contrast advised - Will need Op urology F/U appointment - MRI abd/pelvis with contrast- pending - Hold Lovenox/ ASA - SCD's - Tele - I&O's Code(s): R31.9 - HEMATURIA, UNSPECIFIED (4) TARYN (acute kidney injury) Current Visit: Yes Status: Acute Assessment & Plan: - Creat 2.25, baseline 1.89- acute on chronic renal disease - IVF - see CT results above Code(s): N17.9 - ACUTE KIDNEY FAILURE, UNSPECIFIED (5) Amara-tachy syndrome Current Visit: Yes Status: Chronic Assessment & Plan: -Noted on recent holter -monitor testing from 02/05/24 - planned pacemaker placement in 2 weeks Code(s): I49.5 - SICK SINUS SYNDROME (6) Diabetes mellitus Current Visit: Yes Status: Acute Assessment & Plan: -Last A1c on file 02/05/24 at 6.03- controlled -ADA diet -SSI Code(s): E11.9 - TYPE 2 DIABETES MELLITUS WITHOUT COMPLICATIONS (7) Former smoker Current Visit: Yes Status: Chronic Assessment & Plan: -Quit 1.5 months ago Code(s): Z87.891 - PERSONAL HISTORY OF NICOTINE DEPENDENCE (8) HLD (hyperlipidemia) Current Visit: Yes Status: Acute Assessment & Plan: -continue statin Code(s): E78.5 - HYPERLIPIDEMIA, UNSPECIFIED (9) Hyponatremia Current Visit: Yes Status: Acute Assessment & Plan: - Na+ 132-mild- trend - IVF Code(s): E87.1 - HYPO-OSMOLALITY AND HYPONATREMIA (10) Hypotension Current Visit: Yes Status: Acute Assessment & Plan: -Most likely secondary to sepsis- see plan above -hold anti-hypertensives - continue to monitor - IVF Code(s): I95.9 - HYPOTENSION, UNSPECIFIED (11) Obesity (BMI 30.0-34.9) Current Visit: Yes Status: Chronic Assessment & Plan: - advised ADA diet and exercise Code(s): E66.9 - OBESITY, UNSPECIFIED (12) Urinary retention due to benign prostatic hyperplasia Current Visit: Yes Status: Acute Assessment & Plan: -as noted on CT scan -FC -Flomax -continue -Urology follow up as OP -Monitor urine output closely - q2H - large clots may clog muse 03/19 - CBI started- consider transfer where there is urology VTE: SCD's Dispo: 2-3 days PPI: Protonix Code(s): N40.1 - BENIGN PROSTATIC HYPERPLASIA WITH LOWER URINARY TRACT SYMP; R33.8 - OTHER RETENTION OF URINE
[2024-03-19 11:50] VITALS: RESP 18
--- NOTE | 2024-03-19 15:30 | PCM.DS ---
Discharge Summary Date of Admission: 03/18/24 14:37 Date of Discharge: 03/19/24 Admitting Physician: BETH DODSON MD Primary Care Provider: [facility] Allergies Allergies No Known Drug Allergies Allergy (Verified 03/18/24 10:48) Hospital Summary - Hospital Course Hospital Course: is a 73 year old male with a pmhx of BPH (on flomax), HLD, amara-tachy syndrome (pacemaker placement scheduled in 2 weeks), DM and HTN. He presented to ED 03/18/24 with complaints of painful urination for three days. Of note ED visit 02/05/24 for which he was treated for UTI with Keflex. Reviewed previous culture showing probable skin contaminant. Patient reports dysuria, frequency, and retention since about January with symptoms worsening over the past few days. Denies hematuria at home, no flank or back pain, nausea, vomiting, or diarrhea. Patient is febrile during interview with temp of 101.3. States he does not recall having fever or chills previously. Muse placed in ED due to urinary retention with noted pyuria, hematuria, and large blood clots in muse bag. Upon arrival to ED, patient was tachypneic and hypotensive with bp 85/49 but later dropping in the 70's/40's. BP improved with fluid resusitation. CT abdomen and pelvis showing 3 small hypodense lesions are seen in the right lobe of liver, Small density focus within the gallbladder DD Fold or stone needs Ultrasound correlation, Bilateral mild to moderate hydroureteronephrosis with bilateral perinephricfat stranding noted. Both ureters are showing tortuous course with no clear stone or thickening. Urinary bladder showed thickened wall with multiple d iverticula, the largest one seen in the posterior aspect measuring 5x4 cm in diameter. Right side kidney midpole shows a 9x9 mm high-density focal lesion. DD proteinous cyst. Lab findings remarkable for leukocytosis at 18.3, normocytic anemia with hgb at 11.7, hyponatremia at 123, TARYN with creat at 3.06 (baseline unknown - previous visit showing 1.89). UA suspicious for infection. Patient given levaquin in ED and 2L fluid bolus. Today BP improved but has continued gross hematuria with clots. CBI started. Consider transfer if does not improve. Overnight he had a temp of 101.4 and 100.4. BCx2 and UC pending. He reports never seeing a urologist before. Continue IV antibiotics and IVF. He states he overall does not feel well. Pt unable to have MRI as he has a hx of shrapnel in his face and never had this removed. Unable to have CT with contrast d/t TARYN. CBI started and not improving. NOw having increased blood and clots in muse. Will transfer to higher level of care as we do not have urology. - Vitals & Intake/Output Vital Signs: Vital Signs Temperature 98.8 F 03/19/24 11:49 Pulse Rate 67 03/19/24 11:49 Respiratory Rate 18 03/19/24 11:49 Blood Pressure 100/59 03/19/24 11:49 O2 Sat by Pulse Oximetry 95 03/19/24 11:49 Intake & Output: Intake & Output 03/17/24 03/18/24 03/19/24 03/20/24 11:59 11:59 11:59 11:59 Intake Total 4097 3800 Output Total 6900 7300 Balance -2803 -3500 Weight 83.007 kg 83.1 kg - Lab Result Diagrams: 03/19/24 04:45 03/19/24 04:45 Lab Results-Last 24 Hrs: Lab Results-Last 24 Hours 03/18/24 03/18/24 03/18/24 Range/Units 14:50 16:48 19:25 WBC (4.23-9.07) x10^3/uL RBC (4.63-6.08) x10^6/uL Hgb 11.0 L (13.7-17.5) g/dL Hct 31.3 L (40.1-51.0) % MCV (79.0-92.2) fL MCH (25.7-32.2) pg MCHC (32.3-36.5) g/dL RDW (11.6-14.4) % Plt Count (163-337) x10^3/uL MPV (9.4-12.4) fL Gran % (34.0-67.9) % Immature Gran % (Auto) (0.001-0.429) % Nucleat RBC Rel Count (0.00-0.2) % Eos # (Auto) (0.04-0.54) x10^3/uL Immature Gran # (Auto) (0.001-0.031) x10^3u/L Absolute Lymphs (auto) (1.32-3.57) x10^3/uL Absolute Monos (auto) (0.30-0.82) x10^3/uL Absolute Nucleated RBC (0.00-0.012) x10^3u/L Lymphocytes % (21.8-53.1) % Monocytes % (5.3-12.2) % Eosinophils % (0.8-7.0) % Basophils % (0.2-1.2) % Absolute Granulocytes (1.78-5.38) x10^3/uL Basophils # (0.01-0.08) x10^3/uL Sodium 128 L (135-145) mmol/L Potassium 3.8 (3.5-5.1) mmol/L Chloride 96 L (98-107) mmol/L Carbon Dioxide 19 L (22-30) mmol/L Anion Gap 16.9 H (5-15) MEQ/L BUN 58 H (9-20) mg/dL Creatinine 2.74 H (0.66-1.25) mg/dL Estimated GFR 23.6 ML/MIN Glucose 108 H (74-106) mg/dL POC Glucometer 118 H (74 to 106) mg/dL Lactic Acid (0.4-2.0) Calcium 8.4 (8.4-10.2) mg/dL Total Bilirubin 1.40 H (0.2-1.3) mg/dL AST 27 (17-59) U/L ALT 24 (0-50) U/L Alkaline Phosphatase 68 (38-126) U/L Serum Total Protein 7.1 (6.3-8.2) g/dL Albumin 3.9 (3.5-5.0) g/dL 03/18/24 03/18/24 03/19/24 Range/Units 20:40 20:58 04:45 WBC 18.5 H (4.23-9.07) x10^3/uL RBC 3.69 L (4.63-6.08) x10^6/uL Hgb 11.0 L (13.7-17.5) g/dL Hct 32.2 L (40.1-51.0) % MCV 87.3 (79.0-92.2) fL MCH 29.8 (25.7-32.2) pg MCHC 34.2 (32.3-36.5) g/dL RDW 12.9 (11.6-14.4) % Plt Count 272 (163-337) x10^3/uL MPV 9.2 L (9.4-12.4) fL Gran % 84.5 H (34.0-67.9) % Immature Gran % (Auto) 0.9 H (0.001-0.429) % Nucleat RBC Rel Count 0.0 (0.00-0.2) % Eos # (Auto) 0.06 (0.04-0.54) x10^3/uL Immature Gran # (Auto) 0.17 H (0.001-0.031) x10^3u/L Absolute Lymphs (auto) 1.08 L (1.32-3.57) x10^3/uL Absolute Monos (auto) 1.50 H (0.30-0.82) x10^3/uL Absolute Nucleated RBC 0.00 (0.00-0.012) x10^3u/L Lymphocytes % 5.8 L (21.8-53.1) % Monocytes % 8.1 (5.3-12.2) % Eosinophils % 0.3 L (0.8-7.0) % Basophils % 0.4 (0.2-1.2) % Absolute Granulocytes 15.61 H (1.78-5.38) x10^3/uL Basophils # 0.07 (0.01-0.08) x10^3/uL Sodium (135-145) mmol/L Potassium (3.5-5.1) mmol/L Chloride (98-107) mmol/L Carbon Dioxide (22-30) mmol/L Anion Gap (5-15) MEQ/L BUN (9-20) mg/dL Creatinine (0.66-1.25) mg/dL Estimated GFR ML/MIN Glucose (74-106) mg/dL POC Glucometer 160 H (74 to 106) mg/dL Lactic Acid 0.7 (0.4-2.0) Calcium (8.4-10.2) mg/dL Total Bilirubin (0.2-1.3) mg/dL AST (17-59) U/L ALT (0-50) U/L Alkaline Phosphatase (38-126) U/L Serum Total Protein (6.3-8.2) g/dL Albumin (3.5-5.0) g/dL 03/19/24 03/19/24 03/19/24 Range/Units 04:45 07:04 10:58 WBC (4.23-9.07) x10^3/uL RBC (4.63-6.08) x10^6/uL Hgb (13.7-17.5) g/dL Hct (40.1-51.0) % MCV (79.0-92.2) fL MCH (25.7-32.2) pg MCHC (32.3-36.5) g/dL RDW (11.6-14.4) % Plt Count (163-337) x10^3/uL MPV (9.4-12.4) fL Gran % (34.0-67.9) % Immature Gran % (Auto) (0.001-0.429) % Nucleat RBC Rel Count (0.00-0.2) % Eos # (Auto) (0.04-0.54) x10^3/uL Immature Gran # (Auto) (0.001-0.031) x10^3u/L Absolute Lymphs (auto) (1.32-3.57) x10^3/uL Absolute Monos (auto) (0.30-0.82) x10^3/uL Absolute Nucleated RBC (0.00-0.012) x10^3u/L Lymphocytes % (21.8-53.1) % Monocytes % (5.3-12.2) % Eosinophils % (0.8-7.0) % Basophils % (0.2-1.2) % Absolute Granulocytes (1.78-5.38) x10^3/uL Basophils # (0.01-0.08) x10^3/uL Sodium 132 L (135-145) mmol/L Potassium 3.6 (3.5-5.1) mmol/L Chloride 103 (98-107) mmol/L Carbon Dioxide 18 L (22-30) mmol/L Anion Gap 14.1 (5-15) MEQ/L BUN 51 H (9-20) mg/dL Creatinine 2.25 H (0.66-1.25) mg/dL Estimated GFR 29.9 ML/MIN Glucose 116 H (74-106) mg/dL POC Glucometer 152 H 125 H (74 to 106) mg/dL Lactic Acid (0.4-2.0) Calcium 8.3 L (8.4-10.2) mg/dL Total Bilirubin 1.00 (0.2-1.3) mg/dL AST 26 (17-59) U/L ALT 20 (0-50) U/L Alkaline Phosphatase 61 (38-126) U/L Serum Total Protein 6.3 (6.3-8.2) g/dL Albumin 3.3 L (3.5-5.0) g/dL Micro Results-Entire Visit: Accuchecks Date 03/19/24 Date 03/19/24 Date 03/18/24 Time 16:58 - Radiology Exams Ordered Rad Exams-Entire Visit: Radiology Procedures Category Date Time Status ABDOMEN AND PELVIS W/0 CONTRAS [CT] Stat Exams 03/18/24 11:50 Completed CHEST 1 VIEW (PORTABLE) Stat Exams 03/18/24 15:49 Completed - Procedures and Test Procedures and Tests throughout Hospitalization: Therapy Orders & Screens 03/18/24 16:41 Respiratory Therapy Assessment DAILY Comment: Diagnosis: Painful urination Discharge Exam General Appearance: no apparent distress, alert Neurologic Exam: alert, oriented x 3, cooperative, normal mood/affect, nml cerebellar function, sensation nml, No motor deficits Eye Exam: PERRL, EOMI, eyes nml inspection Ears, Nose, Throat Exam: normal ENT inspection, pharynx normal, moist mucous m embranes Neck Exam: normal inspection, non-tender, supple, full range of motion Respiratory Exam: normal breath sounds, lungs clear, No respiratory distress Cardiovascular Exam: regular rate/rhythm, normal heart sounds Gastrointestinal/Abdomen Exam: soft, No tenderness, No mass Male Genitalia Exam: deferred Rectal Exam: deferred Back Exam: normal inspection, normal range of motion, No CVA tenderness, No vertebral tenderness Extremity Exam: normal inspection, normal range of motion Skin Exam: normal color, warm, dry Final Diagnosis/Problem List - Final Discharge Diagnosis/Problem (1) Sepsis Current Visit: Yes Status: Acute (2) UTI (urinary tract infection) Current Visit: Yes Status: Acute Code(s): N39.0 - URINARY TRACT INFECTION, SITE NOT SPECIFIED (3) Hematuria Current Visit: Yes Status: Acute Code(s): R31.9 - HEMATURIA, UNSPECIFIED (4) TARYN (acute kidney injury) Current Visit: Yes Status: Acute Code(s): N17.9 - ACUTE KIDNEY FAILURE, UNSPECIFIED (5) Amara-tachy syndrome Current Visit: Yes Status: Chronic Code(s): I49.5 - SICK SINUS SYNDROME (6) Diabetes mellitus Current Visit: Yes Status: Acute Code(s): E11.9 - TYPE 2 DIABETES MELLITUS WITHOUT COMPLICATIONS (7) Former smoker Current Visit: Yes Status: Chronic Code(s): Z87.891 - PERSONAL HISTORY OF NICOTINE DEPENDENCE (8) HLD (hyperlipidemia) Current Visit: Yes Status: Acute Code(s): E78.5 - HYPERLIPIDEMIA, UNSPECIFIED (9) Hyponatremia Current Visit: Yes Status: Acute Code(s): E87.1 - HYPO-OSMOLALITY AND HYPONATREMIA (10) Hypotension Current Visit: Yes Status: Acute Code(s): I95.9 - HYPOTENSION, UNSPECIFIED (11) Obesity (BMI 30.0-34.9) Current Visit: Yes Status: Chronic Code(s): E66.9 - OBESITY, UNSPECIFIED (12) Urinary retention due to benign prostatic hyperplasia Current Visit: Yes Status: Acute Assessment & Plan: 1) Sepsis Current Visit: Yes Status: Acute Assessment & Plan: -CT abdomen and pelvis showing 3 small hypodense lesions are seen in the right lobe of liver, Small density focus within the gall bladder DD Fold or stone needs Ultrasound correlation, Bilateral mild to moderate hydroureteronephrosis with bilateral perinephricfat stranding noted. Both ureters are showing tortuous course with no clear stone or thickening. Urinary bladder showed thickened wall with multiple diverticula, the largest one seen in the posterior aspect measuring 5x4 cm in diameter. Right side kidney midpole shows a 9x9 mm high-density focal lesion. DD proteinous cyst. -UA suggestive of UTI - most likely source of infection -meets criteria with RR, leukocytosis and known source of infection - septic shock with hypotension/TARYN -LA wnl/PCT elevated at 0.368/blood and urine cultures pending -WBC at 18.3 -trend -supplemental oxygen with spo2 goal of > 92% -ABG prn if significant hypoxia/lethargy -Received 2L fluid bolus - continue IVF -Strict I&O - monitor for fluid overload -Target MAP>65 - if patient remains hypotensive consider levophed drip -CXR: IMPRESSION: Mild prominence of perihilar vascular markings probably due to mild pulmonary vascular congestion. Clinical correlation is suggested - RA 94% -Levaquin initiated in ED - continue ceftriaxone - follow cultures 03/19 - WBC 18.5 - temp 101.4 and 100.4 last night (2) UTI (urinary tract infection) Current Visit: Yes Status: Acute Assessment & Plan: - see sepsis plan above Code(s): N39.0 - URINARY TRACT INFECTION, SITE NOT SPECIFIED (3) Hematuria Current Visit: Yes Status: Acute Assessment & Plan: - Started CBI today with NS - Consider transfer as we do not have urology here- if sxs do not improve - CT abd/pelvis: IMPRESSION: 1. At least 3 small hypodense lesions are seen in the right lobe of liver, largest measuring about 7X 12 mm suggesting benign lesions likely hemangiomas versus hepatic cysts. 2. The gallbladder is normal in size and shape. No wall thickening, pericholecystic fluid,were identified. Small density focus within the gall bladder DD Fold or stone needs Ultrasound correlation. 3. Bilateral mild to moderate hydroureteronephrosis with bilateral perinephric fat stranding noted. 4. Both ureters are showing tortuous course with no clear stone or thickening. 5. Urinary bladder showed thickened wall with multiple diverticula, the largest one seen in the posterior aspect measuring 5x4 cm in diameter. 6. Right side kidney midpole shows a 9x9 mm high-density focal lesion. DD proteinous cyst. 7. Multiple vascular calcifications noted including the aorta and its branches. 8. 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 9. Mild enlarged Prostate. 10. Full workup with urologist and CT/MRI abdomen with contrast advised - Will need Op urology F/U appointment - MRI abd/pelvis with contrast- pending - Hold Lovenox/ ASA - SCD's - Tele - I&O's Code(s): R31.9 - HEMATURIA, UNSPECIFIED (4) TARYN (acute kidney injury) Current Visit: Yes Status: Acute Assessment & Plan: - Creat 2.25, baseline 1.89- acute on chronic renal disease - IVF - see CT results above Code(s): N17.9 - ACUTE KIDNEY FAILURE, UNSPECIFIED (5) Amara-tachy syndrome Current Visit: Yes Status: Chronic Assessment & Plan: -Noted on recent holter -monitor testing from 02/05/24 - planned pacemaker placement in 2 weeks Code(s): I49.5 - SICK SINUS SYNDROME (6) Diabetes mellitus Current Visit: Yes Status: Acute Assessment & Plan: -Last A1c on file 02/05/24 at 6.03- controlled -ADA diet -SSI Code(s): E11.9 - TYPE 2 DIABETES MELLITUS WITHOUT COMPLICATIONS (7) Former smoker Current Visit: Yes Status: Chronic Assessment & Plan: -Quit 1.5 months ago Code(s): Z87.891 - PERSONAL HISTORY OF NICOTINE DEPENDENCE (8) HLD (hyperlipidemia) Current Visit: Yes Status: Acute Assessment & Plan: -continue statin Code(s): E78.5 - HYPERLIPIDEMIA, UNSPECIFIED (9) Hyponatremia Current Visit: Yes Status: Acute Assessment & Plan: - Na+ 132-mild- trend - IVF Code(s): E87.1 - HYPO-OSMOLALITY AND HYPONATREMIA (10) Hypotension Current Visit: Yes Status: Acute Assessment & Plan: -Most likely secondary to sepsis- see plan above -hold anti-hypertensives - continue to monitor - IVF Code(s): I95.9 - HYPOTENSION, UNSPECIFIED (11) Obesity (BMI 30.0-34.9) Current Visit: Yes Status: Chronic Assessment & Plan: - advised ADA diet and exercise Code(s): E66.9 - OBESITY, UNSPECIFIED (12) Urinary retention due to benign prostatic hyperplasia Current Visit: Yes Status: Acute Assessment & Plan: -as noted on CT scan -FC -Flomax -continue -Urology follow up as OP -Monitor urine output closely - q2H - large clots may clog muse 03/19 - CBI started- consider transfer where there is urology Code(s): N40.1 - BENIGN PROSTATIC HYPERPLASIA WITH LOWER URINARY TRACT SYMP; R33.8 - OTHER RETENTION OF URINE - Discharge Discharge Date: 03/19/24 Disposition: DC TO OTHER HOSP Condition: Stable Prescriptions: Continue Metoprolol Tartrate 25 mg [Lopressor 25MG Tab] 25 mg PO HS Clonidine HCl 0.1 mg [Clonidine 0.1 mg Tablet] 0.1 mg PO HS Aspirin EC 81 mg [Ecotrin 81 mg] 81 mg PO HS Metformin HCl 500 mg [Glucophage 500 MG] 500 mg PO HS Simvastatin 20Mg [Zocor 20Mg] 40 mg PO HS Tamsulosin HCl 0.4 mg [Flomax 0.4 MG] 0.4 mg PO HS Ezetimibe 10 mg [Zetia 10 MG] 10 mg PO HS Olanzapine 5 mg [zyPREXA 5MG TABLET] 10 mg PO HS Follow up with: [facility] [Primary Care Provider] -
[2024-03-19 16:50] VITALS: BP 123/65; PULSE 73; TEMP 99.4; O2SAT 93
== END 2024-03-19 18:00 | DRG 872 ==
LOC: ED 10:22 → OBSVTOIN 14:37 → MED SURG 14:37
PROVIDERS: ADMIT Internal Medicine; ATTEND Internal Medicine
DX: A41.9 Sepsis, unspecified organism (principal); N39.0 Urinary tract infection, site not specified; N17.9 Acute kidney failure, unspecified; E87.1 Hypo-osmolality and hyponatremia; R30.0 Dysuria; N40.0 Benign prostatic hyperplasia without lower urinary tract symptoms; E78.5 Hyperlipidemia, unspecified; E11.9 Type 2 diabetes mellitus without complications; I10 Essential (primary) hypertension; R33.9 Retention of urine, unspecified; R31.9 Hematuria, unspecified; I49.5 Sick sinus syndrome; Z87.891 Personal history of nicotine dependence; I95.9 Hypotension, unspecified; E66.9 Obesity, unspecified; Z79.899 Other long term (current) drug therapy
CPT/HCPCS: 36000; 36415; 51702; 71045; 74176; 80053; 81001; 82805; 82947; 83605; 84145; 85014; 85018; 85025; 87040; 87077; 87086; 87186; 93041; 94760; 96360; 96361; 96365; 99285; J0696; J1956; Q3014; A9270-GY

== ENCOUNTER 2024-10-31 14:31 | Emergency (ER) | payer OTHER ==
--- NOTE | 2024-10-31 14:35 | ERPHSYRPT ---
- History of Present Illness Time Seen by Provider: 10/31/24 14:34 Source: patient Exam Limitations: no limitations Physician History: This is a 74-year-old white male patient who receives the majority of his medical care from the [facility] system and presents with hematuria in his Gutierrez catheter bag after he had the catheter and bag changed at Dr. Mejia (urology) office in [facility]. When he came home he noticed blood in the bag and therefore he contacted the urologist office and they told him to make sure he is drinking well. Patient is on an anticoagulation medication but he does not recall the name of this medication. Patient has a history of atrial fibrillation, hypertension, prostate issues, diabetes and hyperlipidemia. Patient has had the catheter in place since February 2024. He was placed on anticoagulation therapy after cardiac surgery in April 2024. Patient denies chest pain. Patient denies shortness of breath. Patient is not dizzy. Timing/Duration: today Activites at Onset: none Quality: other (No pain) Onset Location: other (No pain) Pain Radiation: none Severity of Pain-Max: none Severity of Pain-Current: none Associated Symptoms: denies symptoms Prior abdominal problems: none Sexual intercourse history: non-contributory Allergies/Adverse Reactions: No Known Drug Allergies Allergy (Verified 10/31/24 14:39) Home Medications: Aspirin EC 81 mg [Ecotrin 81 mg] 81 mg PO HS 02/05/24 [History] Clonidine HCl 0.1 mg [Clonidine 0.1 mg Tablet] 0.1 mg PO HS 02/05/24 [History] Metformin HCl 500 mg [Glucophage 500 MG] 500 mg PO HS 02/05/24 [History] Metoprolol Tartrate 25 mg [Lopressor 25MG Tab] 25 mg PO HS 02/05/24 [History] Ezetimibe 10 mg [Zetia 10 MG] 10 mg PO HS 03/18/24 [History] Olanzapine 5 mg [zyPREXA 5MG TABLET] 10 mg PO HS 03/18/24 [History] Simvastatin 20Mg [Zocor 20Mg] 40 mg PO HS 03/18/24 [History] Tamsulosin HCl 0.4 mg [Flomax 0.4 MG] 0.4 mg PO HS 03/18/24 [History] Hx Tetanus, Diphtheria Vaccination/Date Given: Yes Hx Influenza Vaccination/Date Given: No Hx Pneumococcal Vaccination/Date Given: No Travel Risk - International Travel Have you traveled outside of the country in past 3 weeks: No - Emerging Infectious Disease Are you exhibiting symptoms associated with any current EIDs: No - Past Medical History Pertinent Past Medical History: Yes Cardiac History: Hypertension Endocrine Medical History: Diabetes Type II - Past Surgical History Past Surgical History: Yes Other Surgical History: something removed from left ear - Social History Smoking Status: Former smoker How long have you smoked: 60 years Exposure to second hand smoke: No Drug Use: none - Social Determinants of Health Will the patient participate in the screening: Declined to provide - Review of Systems Constitutional: No Symptoms Eyes: No Symptoms Ears, Nose, & Throat: No Symptoms Respiratory: No Symptoms Cardiac: No Symptoms Abdominal/Gastrointestinal: No Symptoms Genitourinary Symptoms: No Symptoms, Hematuria (In the patient's Gutierrez catheter and Gutierrez catheter bag today) Musculoskeletal: No Symptoms Skin: No Symptoms Neurological: No Symptoms Psychological: No Symptoms Endocrine: No Symptoms Hematologic/Lymphatic: No Symptoms Immunological/Allergic: No Symptoms All Other Systems: Reviewed and Negative - Nursing Vital Signs Nursing Vital Signs: Initial Vital Signs Temperature 98 F 10/31/24 14:38 Pulse Rate 73 10/31/24 14:38 Respiratory Rate 18 10/31/24 14:38 Blood Pressure 146/91 10/31/24 14:38 O2 Sat by Pulse Oximetry 98 10/31/24 14:38 Pain Scale Pain Intensity 0 - Physical Exam General Appearance: no apparent distress, alert, anxiety Eye Exam: PERRL/EOMI, eyes nml inspection Ears, Nose, Throat Exam: normal ENT inspection, moist mucous membranes Neck Exam: normal inspection, non-tender, supple, full range of motion Respiratory Exam: normal breath sounds, lungs clear, airway intact, No chest tenderness, No respiratory distress Cardiovascular Exam: regular rate/rhythm, normal heart sounds, normal peripheral pulses Gastrointestinal/Abdomen Exam: soft, normal bowel sounds, No tenderness Rectal Exam: not done Male Genital Exam: circumcised (Blood at the meatus where the entrance to the patient's Gutierrez catheter is. It is dried blood and not active bleeding) Back Exam: normal inspection, normal range of motion, No CVA tenderness, No vertebral tenderness Extremity Exam: normal inspection, normal range of motion, pelvis stable Neurologic Exam: alert, oriented x 3, cooperative, chairman and ceo II-XII nml as tested, normal mood/affect, nml cerebellar function, nml station & gait, sensation nml Skin Exam: normal color, warm, dry Lymphatic Exam: No adenopathy SpO2 Interpretation: normal O2 Delivery: Room Air - Course Nursing assessment & vital signs reviewed: Yes Ordered Tests: Active Orders 24 hr Category Date Time Status IV Insertion STAT Care 10/31/24 15:04 Active BMP Stat Lab 10/31/24 15:30 Completed CBC W DIFF Stat Lab 10/31/24 15:30 Completed PROTIME WITH INR Stat Lab 10/31/24 15:30 Completed Medication Summary Discontinued Medications Generic Name Dose Route Start Last Admin Trade Name Freq PRN Reason Stop Dose Admin Sodium Chloride 500 mls @ 500 mls/hr 10/31/24 15:05 10/31/24 15:37 Sodium Chloride 0.9% 500 Ml IV 10/31/24 16:04 500 mls/hr .Q1H ONE Administration Sodium Chloride Confirm 10/31/24 15:10 Sodium Chloride 0.9% 500 Ml Administered 10/31/24 15:11 Dose 500 mls @ ud IV .STK-MED ONE Lab/Rad Data: Laboratory Result Diagrams 10/31/24 15:30 10/31/24 15:30 Laboratory Results 10/31/24 10/31/24 10/31/24 Range/Units 15:30 15:30 15:30 WBC 10.1 H (4.23-9.07) x10^3/uL RBC 4.29 L (4.63-6.08) x10^6/uL Hgb 10.9 L (13.7-17.5) g/dL Hct 35.7 L (40.1-51.0) % MCV 83.2 (79.0-92.2) fL MCH 25.4 L (25.7-32.2) pg MCHC 30.5 L (32.3-36.5) g/dL RDW 16.1 H (11.6-14.4) % Plt Count 234 (163-337) x10^3/uL MPV 10.2 (9.4-12.4) fL Gran % 70.9 H (34.0-67.9) % Immature Gran % (Auto) 0.4 (0.001-0.429) % Nucleat RBC Rel Count 0.0 (0.00-0.2) % Eos # (Auto) 0.20 (0.04-0.54) x10^3/uL Immature Gran # (Auto) 0.04 H (0.001-0.031) x10^3u/L Absolute Lymphs (auto) 1.64 (1.32-3.57) x10^3/uL Absolute Monos (auto) 0.91 H (0.30-0.82) x10^3/uL Absolute Nucleated RBC 0.00 (0.00-0.012) x10^3u/L Lymphocytes % 16.3 L (21.8-53.1) % Monocytes % 9.0 (5.3-12.2) % Eosinophils % 2.0 (0.8-7.0) % Basophils % 1.4 H (0.2-1.2) % Absolute Granulocytes 7.14 H (1.78-5.38) x10^3/uL Basophils # 0.14 H (0.01-0.08) x10^3/uL PT 11.5 (9.4-12.5) SECONDS INR 1.06 (0.8-3.0) Sodium 133 L (135-145) mmol/L Potassium 4.0 (3.5-5.1) mmol/L Chloride 96 L (98-107) mmol/L Carbon Dioxide 25 (22-30) mmol/L Anion Gap 15.8 H (5-15) MEQ/L BUN 29 H (9-20) mg/dL Creatinine 1.09 (0.66-1.25) mg/dL Estimated GFR 70.8 ML/MIN Glucose 93 (74-106) mg/dL Calcium 8.9 (8.4-10.2) mg/dL - Progress Progress: unchanged Progress Note: 10/31/24 15:12 My medical decision making and the assignment of low to moderate complexity of this patient's medical issue today is based on review of the patient's past medical history, review the patient's medication list, reviewed patient drug allergy list, history present illness and physical findings on examination. The workup in this patient includes placement of a intravenous line, CBC, BMP, PT/INR. Will also infuse normal saline solution intravenously. Differential diagnosis includes but is not limited to hematuria, anemia, abnormal renal function, post traumatic Gutierrez catheter placement bleed and patient on anticoagulation therapy 10/31/24 16:06 I interpreted the patient's laboratory data results. Based on laboratory data results, the patient does have chronic anemia. His hemoglobin today is 10.9. This is compared to hemoglobin level of 11.0 that the patient had an February 2024. Patient's renal function is normal. Patient's PT/INR is normal. 10/31/24 16:08 Counseled pt/family regarding: lab results, diagnosis, need for follow-up Medical Desision Making - Diagnostic Testing Diagnostic test were ordered, analyzed, and reviewed by me: No - Risk of complications Low Risk: Low risk of morbidity from additional dx testing or treatment - Departure Departure Disposition: Home Clinical Impression: Gross hematuria Condition: Stable Critical Care Time: No Referrals: [facility] [Primary Care Provider, UNKNOWN] - Follow up/PCP as directed Additional Instructions: Drink plenty of fluids. Hold your blood thinning medicine/anticoagulation medicine, for 48 hours. Restart after 48 hours. Call your urologist and primary care provider tomorrow, 11/01/2024, to make arrangements for appointment to be seen in the next 3 to 5 days. Return to the emergency department if the blood in the Gutierrez catheter increases or you have symptoms of shortness of breath, chest pain, dizziness or weakness
[2024-10-31 14:52] VITALS: RESP 18; TEMP 98
[2024-10-31] MEDS ORDERED: Sodium Chloride 0.9% 500 ML 500 ML IV ONE (15:10)
[2024-10-31] MEDS: Sodium Chloride 0.9% 500 ML 500 ML IV ONE (15:37)
[2024-10-31 15:43] LABS: Absolute Neutrophil Ct (ANC) 7.14 x10^3/uL (1.78-5.38); BASOPHIL % 1.4 % (0.2-1.2); Basophil (Absolute #) 0.14 x10^3/uL (0.01-0.08); Hematocrit 35.7 % (40.1-51.0); Hemoglobin 10.9 g/dL (13.7-17.5); IMMATURE GRAN # 0.04 x10^3u/L (0.001-0.031); IMMATURE GRAN % 0.4 % (0.001-0.429); Lymphocyte (Absolute #) 1.64 x10^3/uL (1.32-3.57); Lymphocytes % 16.3 % (21.8-53.1); Mean Cell Volume 83.2 fL (79.0-92.2); Mean Corpuscular Hemoglobin 25.4 pg (25.7-32.2); Mean Corpuscular Hgb Concent. 30.5 g/dL (32.3-36.5); Mean Platelet Volume 10.2 fL (9.4-12.4); Monocyte (Absolute #) 0.91 x10^3/uL (0.30-0.82); Neutrophil % 70.9 % (34.0-67.9); Platelet Count 234 x10^3/uL (163-337); Red Blood Count 4.29 x10^6/uL (4.63-6.08); Red Cell Distribution Width 16.1 % (11.6-14.4); White Blood Count 10.1 x10^3/uL (4.23-9.07)
[2024-10-31 15:55] LABS: ANION GAP 15.8 MEQ/L (5-15); Calcium 8.9 mg/dL (8.4-10.2); Creatinine 1 1.09 mg/dL (0.66-1.25); EST GLOMERULAR FILTRATION RATE 70.8 ML/MIN; INR 1.06 (0.8-3.0); PROTIME 11.5 SECONDS (9.4-12.5)
[2024-10-31 16:34] VITALS: O2SAT 93
[2024-10-31 17:06] VITALS: BP 149/86; PULSE 76
== END 2024-10-31 17:19 | disposition home or self-care (01) ==
LOC: ED 14:31
DX: R31.0 Gross hematuria (principal); Z79.84 Long term (current) use of oral hypoglycemic drugs; Z79.899 Other long term (current) drug therapy
CPT/HCPCS: 36415; 80048; 85025; 85610; 96360; 96374; 99283